=== PATIENT | female | born 1965 | race Two or more races ===

== ENCOUNTER → 2016-05-11 | Outpatient (CLI) | payer BC ==
[~2016-05-11] MED LIST: BUPR150T11 PO; ESOM20CA PO; ESTR0.9T PO; FERR-26 PO; GABA-586 PO; HYDR-2762 PO; LISI-334 PO
[2016-05-11 09:12] LABS: BASO # 0.1 x10^3/uL (0.0-0.2); BASO % 1 % (0-3); EOS % 1 % (0-3); HEMATOCRIT 40.5 % (36.0-47.0); HEMOGLOBIN 12.8 g/dL (12.0-15.5); LYMPH # 2.8 x10^3/uL (1.0-4.8); LYMPH % 26 % (24-48); MEAN CORPUSCULAR HEMOGLOBIN 28 pg (25-35); MEAN CORPUSCULAR HGB CONC 32 g/dL (31-37); MEAN CORPUSCULAR VOLUME 87 fL (79-100); MONO % 7 % (0-9); NEUT % 66 % (31-73); PLATELET COUNT 276 x10^3/uL (140-400); RED BLOOD COUNT 4.65 x10^6/uL (3.50-5.40); RED CELL DISTRIBUTION WIDTH 14.1 % (11.5-14.5); WHITE BLOOD COUNT 10.7 x10^3/uL (4.0-11.0)
[2016-05-11 09:29] LABS: ALBUMIN 3.3 g/dL (3.4-5.0); CALCIUM 9.1 mg/dL (8.5-10.1); CREATININE 0.7 mg/dL (0.6-1.0); GFR 89.3; POTASSIUM 3.9 mmol/L (3.5-5.1)
[2016-05-11 09:37] LABS: PROTHROMBIN TIME PATIENT 12.5 SEC (11.7-14.0)
[2016-05-11 11:18] LABS: BILIRUBIN,URINE NEGATIVE (NEG); GLUCOSE,URINE NEGATIVE (NEG); NITRITE,URINE NEGATIVE (NEG); PH,URINE 5.5; PROTEIN,URINE NEGATIVE (NEG-TRACE); UROBILINOGEN,URINE 0.2 mg/dL (0.2 mg/dL)
[2016-05-11 11:29] LABS: BACTERIA,URINE MANY /HPF (0-FEW); SQUAMOUS EPITHELIAL CELL,UR MANY /LPF
--- NOTE | 2016-05-11 12:25 | EKG ---
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
--- NOTE | 2016-05-11 13:31 | RAD ---
Chest, 2 views, 05/11/2016: History: Preop evaluation for knee surgery, hypertension The heart size and pulmonary vascularity are normal. No pulmonary infiltrates are seen. There is no evidence of pleural fluid. Mild spurring is present in the spine. IMPRESSION: No acute cardiopulmonary abnormality is detected.
== END | disposition home or self-care (01) ==
LOC: SURGPAT 12:59
PROVIDERS: ATTEND Orthopaedic Surgery
DX: M17.11 Unilateral primary osteoarthritis, right knee (principal); I10 Essential (primary) hypertension; Z98.890 Other specified postprocedural states; Z01.818 Encounter for other preprocedural examination
CPT/HCPCS: 36415; 71020; 80048; 81001; 82040; 85027; 85610; 85651; 85730; 87086; 87641; 93005

== ENCOUNTER → 2016-05-27 | Outpatient (CLI) | payer BC ==
[~2016-05-27] MED LIST changes: +ASPI325T4 PO; +CELE200C PO
[2016-05-27 15:19] LABS: BILIRUBIN,URINE SMALL (NEG); GLUCOSE,URINE NEGATIVE (NEG); NITRITE,URINE NEGATIVE (NEG); PROTEIN,URINE NEGATIVE (NEG-TRACE); UROBILINOGEN,URINE 0.2 mg/dL (0.2 mg/dL)
[2016-05-27 15:32] LABS: BACTERIA,URINE MODERATE /HPF (0-FEW); RBC,URINE RARE /HPF (0-2); SQUAMOUS EPITHELIAL CELL,UR MOD /LPF; WBC,URINE OCC /HPF (0-4)
== END | disposition home or self-care (01) ==
LOC: LAB 12:18
PROVIDERS: ATTEND Orthopaedic Surgery
DX: M17.11 Unilateral primary osteoarthritis, right knee (principal)
CPT/HCPCS: 81001; 87086

== ENCOUNTER 2016-06-02 06:12 | Inpatient (IN) | payer BC ==
[~2016-06-02] VITALS: Ht 158.8 cm; Wt 111.1 kg
[2016-06-02] VITALS (11 sets, daily range): BP systolic 111–143; BP diastolic 60–83
[2016-06-02] MEDS: IV DEXTROSE 5 %-0.45 % NACL 1,000 ML IV SCH ×2 (06:00→14:09)
[~2016-06-02 06:12] MED LIST changes: -ASPI325T4 PO; +CEFAZOLIN 2GM PREMIX 50 ML IV PRN; -CELE200C PO; +TRANEXAMIC ACID 1,000 MG in IV NORMAL SALINE 50ML 50 ML INJ ONE
[2016-06-02] MEDS ORDERED: TOBRAMYCIN POWDER 1.2 GM VIAL. ONE (06:41)
[2016-06-02] MEDS ORDERED: VANCOMYCIN 1 GM VIAL. ONE (06:41)
[2016-06-02] MEDS ORDERED: PROCHLORPERAZINE 10 MG/2 ML VIAL. IV PRN ×2 (07:00→12:45)
[2016-06-02] MEDS ORDERED: IV RINGERS,LACTATED 1000ML 1,000 ML IV SCH (07:00)
[2016-06-02] MEDS ORDERED: FENTANYL PF 100 MCG/2 ML VIAL. IV PRN ×3 (07:00→12:45)
[2016-06-02] MEDS ORDERED: ONDANSETRON PF 4 MG/2 ML VIAL. IV PRN (07:00)
[2016-06-02] MEDS ORDERED: LIDOCAINE 1% 1 ML SYRINGE. ID PRN (07:00)
[2016-06-02] MEDS ORDERED: HYDROCODONE/APAP 7.5/325MG TABLET. ONE (07:20)
[2016-06-02] MEDS ORDERED: HYDROCODONE/APAP 7.5/325MG TABLET. PO ONE (07:30)
[2016-06-02] MEDS ORDERED: CELE200C PO (07:40)
[2016-06-02] MEDS ORDERED: TRANEXAMIC ACID 1,000 MG in IV NORMAL SALINE 50ML 50 ML INJ ONE (08:00)
[2016-06-02] MEDS ORDERED: MORPHINE SULFATE 5 MG, KETOROLAC TROMETHAMINE 30 MG, ROPIVacaine 0.5% PF 60 ML, EPINEPH... INT ART ONE ×5 (08:00)
[2016-06-02] MEDS ORDERED: FENTANYL PF 100 MCG/2 ML VIAL. ONE ×3 (09:47→12:30)
[2016-06-02] MEDS ORDERED: MIDAZOLAM HCL 2 MG/2 ML VIAL. ONE (09:47)
[2016-06-02] MEDS ORDERED: ROCURONIUM 50 MG/5 ML VIAL. ONE (09:48)
[2016-06-02] MEDS ORDERED: FAMOTIDINE 20 MG/2 ML VIAL ONE (09:49)
[2016-06-02] MEDS ORDERED: LIDOCAINE 2% 100 MG/5 ML DISP.SYRIN. ONE (09:49)
[2016-06-02] MEDS ORDERED: PROPOFOL 20 ML IV ONE (09:49)
[2016-06-02] MEDS ORDERED: DEXAMETHASONE SOD PHOS 20 MG/5 ML VIAL. ONE (09:49)
[2016-06-02] MEDS ORDERED: ONDANSETRON PF 4 MG/2 ML VIAL. ONE (09:49)
[2016-06-02] MEDS ORDERED: SEVOFLURANE 61 TO 120 MINUTES. IH ONE (12:02)
[2016-06-02] MEDS ORDERED: DESFLURANE 61 TO 120 MINUTES IH ONE (12:02)
[2016-06-02] MEDS ORDERED: NEOSTIGMINE METHYLSULFATE 5 MG/5 ML SYRINGE. ONE (12:03)
[2016-06-02] MEDS ORDERED: GLYCOPYRROLATE 1 MG/5 ML VIAL. ONE (12:03)
--- NOTE | 2016-06-02 12:24 | PDOC4 ---
Operative Note Operative Note Date of Procedure: June 02, 2016 Pre-Op Diagnosis: Osteoarthritis right knee Post-Op Diagnosis: Osteoarthritis right knee Procedure: right total knee arthroplasty Surgeon: Shai oMreno MD B[employer] Molding Machine Operator: Elizabeth Diallo PA-C Anesthesia: General EBL: 100 mL Specimens Obtained: right knee bone and soft tissue Complications: none Implant Company: [employer] Drains: Hemovac plus pain catheter Tourniquet time: 57 minutes Indications for Procedure: Arthritis pain unrelieved by nonoperative management. Findings: Severe osteoarthritis with bone on bone contact medially and at the patellofemoral joint Implants used: Size 3 right bicruciate stabilized Journey II BCS Oxinium femoral component, size 2 right Journey nonporous tibial baseplate, size 1-2 18 mm right Journey II BCS XLPE articular insert, 29 mm oval Floridalma II resurfacing patellar component Procedure in Detail: The patient was identified in the preoperative holding area, and the correct right extremity was marked by me. The patient was taken to the operating room where the patient was anesthetized by the Department of Anesthesia. Preoperative antibiotics were given intravenously. Tranexamic acid 1 g was given intravenously for intraoperative hemostasis. A "time-out" procedure was performed. The patient was positioned supine on the operative table with a tourniquet on the upper thigh. The limb was thoroughly prepped and draped in sterile fashion. An impervious stockinet and adhesive drape were used such that the skin was entirely covered. An Gaitan leg puri was used. The operating team wore personal exhaust-ventilated hoods. The tourniquet was inflated to 350 mm Hg. A midline skin incision was made with a scalpel using the patella and tibial tubercle as landmarks. Electrocautery was used for hemostasis. My assistant tennis coach used rake retractors. A medial parapatellar arthrotomy incision was used with extension into the distal quadriceps tendon. The patella was retracted laterally and Hohmann retractors were now used by my assistant tennis coach. Excess synovium, the menisci, and the cruciate ligaments were resected sharply. The patella was assessed and excess synovium and osteophytes around the patellar articulation were removed. There was extensive inferior patellar osteophyte formation, and patella baja. Even after resection of the osteophyte, the patellar baja caused the patella to contact the tibia at 90 degrees of flexion. The patella was measured with a caliper, cut freehand with a saw using caliper measurements, sized, and then drilled for an oval three-pegged patella component. Periarticular injection was used in the suprapatellar pouch and distal quadriceps muscle. Whitesides's line was assessed on the femur. An intra-medullary 5 degree cutting guide was pinned to the femur, and a distal femoral cut was made with an oscillating saw. An additional 4 mm resection was used due to the deep femoral sulcus, and deficient femoral condyle.My assistant tennis coach held Hohmann retractors and an [facility] retractor to protect the medial and lateral collateral ligaments, the patellar tendon, the skin and the other soft tissues. An anterior referencing guide was applied with external rotation of 3 to match Whitesides line. A 5-in-1 Journey II cutting guide was then applied and pinned to the femur. The posterior, anterior, and all chamfer cuts were made with the oscillating saw. An extramedullary guide was pinned to the tibia and rotational alignment and the planned resection thickness assessed. An external alignment abilio was used to verify the planned cut in the varus-valgus plane and regarding posterior slope referencing the tibial tubercle, the tibial shaft, the ankle joint, and the second metatarsal. The upper tibia was cut made with an oscillating saw. My assistant tennis coach held Hohmann retractors and a posterior cruciate ligament retractor to protect the medial and lateral collateral ligaments, the patellar tendon, the skin, the peroneal nerve and the other soft tissues. The upper tibia was sized with a trial baseplate. The posterior compartment was cleared of osteophytes and loose bodies, and posterior capsule released. Monica-articular injection was used in the posterior compartment. The box cut for a posterior stabilized component was made. A preliminary reduction was performed with a trial femur, trial tibial baseplate and trial polyethylene. Soft-tissue balancing was now performed, and extension and rotation of the alignments was checked using a guide abilio in the tibial trial and a guide pin in the femur. No additional releases were required. The stability was assessed using different thicknesses of tibial articular surface to find satisfactory stability and good range of motion. The rotation of the tibial component was marked on the upper tibia. Final trial reduction was now performed verifying patella tracking and tibiofemoral stability and alignment. The tibia preparation was completed with a drill, saw, and fin punch at the previously noted rotation. The final implants were verified and opened. Outer gloves were changed by the operating team. The bone cuts were washed thoroughly with the Pollo InterPulse device and dried. Two packages of Palacos bone cement were mixed in powdered form with 1 gm of Vancomycin and 1.2 g tobramycin, then vacuum-mixed with the monomer, and placed into a cement gun. The cut surfaces of the bone were thoroughly dried with Linton-tip suction and with laparotomy sponges for cement interdigitation. The final components were cemented into place. The knee was kept at full extension while the cement hardened, and excess cement was removed. Tranexamic acid 1 g was redosed intravenously for additional intraoperative hemostasis. A final periarticular injection was used for pain relief. The tourniquet was released, and electrocautery was used for hemostasis. A final check of [id number] and stability was made, and the polyethylene implant final size was chosen. The polyethylene implant was secured to the tibial baseplate, and the knee was reduced a final time. Thorough irrigation was used. Hemovac and pain catheter were used.The arthrotomy was closed with interrupted [id number] #1 PDS suture. The capsulotomy was then run with #1 STRATAFIX symmetric PDS plus. The subcutaneous tissues were closed with #2-0 Vicryl by my assistant tennis coach. The skin was reapproximated with yrn by my assistant tennis coach. A bulky sterile dressing was applied. Needle and sponge counts were correct. SHAI MORENO MD Jun 02, 2016 12:24
[2016-06-02] MEDS: MORPHINE SULFATE 2 MG/ML DISP.SYRIN. IV PRN ×2 (12:40→12:50)
[2016-06-02] MEDS ORDERED: TRAMADOL 50 MG TABLET. PO PRN (12:45)
[2016-06-02] MEDS ORDERED: OXYCODONE/APAP 5/325 TABLET. PO PRN (12:45)
[2016-06-02] MEDS ORDERED: MORPHINE SULFATE 2 MG/ML DISP.SYRIN. IV PRN (12:45)
[2016-06-02] MEDS ORDERED: DEXTROSE 50% 25 GM / 50ML DISP.SYRIN. IV PRN (12:45)
[2016-06-02] MEDS ORDERED: ACETAMINOPHEN 325 MG TABLET. PO PRN (12:45)
[2016-06-02] MEDS ORDERED: DIPHENHYDRAMINE 50 MG/ML VIAL IV PRN (12:45)
[2016-06-02] MEDS ORDERED: ZOLPIDEM 5 MG TABLET. PO PRN (12:45)
[2016-06-02] MEDS ORDERED: 0.9 % SODIUM CHLORIDE 10 ML DISP.SYRIN. IV PRN (12:45)
[2016-06-02] MEDS ORDERED: MORPHINE SULFATE 10 MG/ML VIAL. IV PRN (12:45)
[2016-06-02] MEDS ORDERED: METOCLOPRAMIDE HCL 10 MG/2 ML VIAL. IV PRN (12:45)
[2016-06-02] MEDS ORDERED: HYDROCODONE/APAP 7.5/325MG TABLET. PO PRN (12:45)
[2016-06-02] MEDS ORDERED: CALCIUM CARBONATE 500 MG TAB.CHEW PO PRN (12:45)
[2016-06-02] MEDS ORDERED: PROCHLORPERAZINE 5 MG TABLET. PO PRN (12:45)
[2016-06-02] MEDS: HYDROMORPHONE 2 MG/ML VIAL. IV PRN ×2 (12:55→13:08)
--- NOTE | 2016-06-02 13:05 | RAD ---
EXAM: Right knee, 2 views HISTORY: Right knee arthroplasty. COMPARISON: None. FINDINGS: There are changes of tricompartmental arthroplasty in near-anatomic alignment. No fractures are identified. Soft tissue gas, skin yrn and a drain are noted. IMPRESSION: 1. Right total knee arthroplasty in expected alignment.
[2016-06-02] MEDS: FENTANYL PF 100 MCG/2 ML VIAL. IV PRN ×2 (13:21→13:41)
[2016-06-02] MEDS: SENNOSIDES/DOCUSATE 8.6/50MG TABLET. PO SCH (14:00)
[2016-06-02] MEDS: MORPHINE SULFATE 4 MG/ML DISP.SYRIN. IV PRN ×4 (15:14→21:46)
[2016-06-02] MEDS: CEFAZOLIN 2GM PREMIX 50 ML IV SCH ×2 (16:19→22:26)
[2016-06-02] MEDS: KETOROLAC TROMETHAMINE 30 MG, BUPIVACAINE MPF 0.25% 20 ML, EPINEPHRINE 0.5 MG in TOTAL ... INT ART SCH (16:56)
[2016-06-02] MEDS: HYDROCODONE/APAP 10/325 TABLET. PO PRN (20:38)
[2016-06-02] MEDS: GABAPENTIN 300 MG CAPSULE. PO SCH (20:38)
[2016-06-02] MEDS: CELECOXIB 200 MG CAPSULE PO SCH (20:38)
[2016-06-02] MEDS: ASPIRIN ENTERIC COATED 325 MG TABLET.DR. PO SCH (20:38)
[2016-06-02] MEDS: buPROPion SR 150 MG TABLET.SA PO SCH (20:39)
[2016-06-02] MEDS: LISINOPRIL 20 MG TABLET PO SCH (21:00)
[2016-06-03] MEDS: MORPHINE SULFATE 4 MG/ML DISP.SYRIN. IV PRN ×3 (02:36→23:37)
[2016-06-03 03:01] VITALS: BP 127/83
[2016-06-03] MEDS: CEFAZOLIN 2GM PREMIX 50 ML IV SCH (04:00)
[2016-06-03 05:00] LABS: HEMATOCRIT 31.9 % (36.0-47.0); HEMOGLOBIN 10.3 g/dL (12.0-15.5)
[2016-06-03] MEDS ORDERED: MAGNESIUM HYDROXIDE 2,400 MG/30 ML ORAL.SUSP. PO PRN (06:00)
[2016-06-03 06:06] VITALS: BP 104/56
[2016-06-03] MEDS: KETOROLAC TROMETHAMINE 30 MG, BUPIVACAINE MPF 0.25% 20 ML, EPINEPHRINE 0.5 MG in TOTAL ... INT ART SCH (06:19)
[2016-06-03] MEDS: OXYCODONE/APAP 7.5/325 TABLET. PO PRN ×3 (06:47→17:25)
[2016-06-03] MEDS: FERROUS SULFATE 325 MG TABLET PO SCH ×3 (08:27→17:25)
[2016-06-03] MEDS: MULTIVITAMIN with MINERAL TABLET. PO SCH (08:27)
[2016-06-03] MEDS: CELECOXIB 200 MG CAPSULE PO SCH ×2 (08:28→20:51)
[2016-06-03] MEDS: ASPIRIN ENTERIC COATED 325 MG TABLET.DR. PO SCH ×2 (08:28→20:51)
[2016-06-03] MEDS: SENNOSIDES/DOCUSATE 8.6/50MG TABLET. PO SCH (08:28)
[2016-06-03] MEDS: IV DEXTROSE 5 %-0.45 % NACL 1,000 ML IV SCH ×3 (08:36→20:16)
--- NOTE | 2016-06-03 09:28 | PDOC ---
PROGRESS NOTES Subjective Subjective Pain in the back of her knee. She states her pain is not controlled at this time and rates it at a 7/10 Objective Vital Signs Vital Signs Date Time Temp Pulse Resp B/P Pulse Ox O2 Delivery O2 Flow Rate FiO2 06/03/16 08:29 Room Air 06/03/16 08:03 2.5 06/03/16 06:47 20 06/03/16 06:06 97.8 96 104/56 94 97.8 Physical Exam Dressing dry. Pain catheter and Hemovac in place. Good dorsiflexion and plantarflexion of the foot with no evidence of neurovascular injury or DVT. Calves are soft and nontender with a negative Homans sign. Peripheral pulses and light touch sensation intact. Labs Laboratory Tests Test 06/03/16 04:45 Hemoglobin 10.3g/dL (12.0-15.5) Hematocrit 31.9% (36.0-47.0) Mean Corpuscular Hemoglobin Concent 32g/dL (31-37) Laboratory Tests Test 06/03/16 04:45 Hemoglobin 10.3g/dL (12.0-15.5) Hematocrit 31.9% (36.0-47.0) Mean Corpuscular Hemoglobin Concent 32g/dL (31-37) Imaging Postoperative x-rays reviewed by me, showing satisfactory total knee replacement , with no apparent complications. Assessment Assessment POD #1 right TKA Problems: Plan Plan of Care Continue POC including DVT prophylaxis and physical therapy. We will switch to Percocet 10/325 1-2 tabs every 4 hours prn pain. Her IV has been removed, but if the Percocet does not control her pain, we can restart IV pain medication. SHAMIKA FRANCISCO Jun 03, 2016 09:28
[2016-06-03] MEDS: OXYCODONE/APAP 10/325 TABLET. PO PRN ×3 (09:35→18:17)
[2016-06-03] MEDS: OXYCODONE ER 15 MG TAB.ER.12H. PO SCH ×2 (11:01→20:52)
[2016-06-03] MEDS: HYDROCODONE/APAP 10/325 TABLET. PO PRN (11:02)
[2016-06-03 11:06] VITALS: BP 113/77
--- NOTE | 2016-06-03 11:39 | PDOC1 ---
History and Physical Date of Admission Date of Admission DATE: 06/02/16 Identification/Chief Complaint Chief Complaint right knee osteoarthritis pain Source Source: Chart review History of Present Illness History of Present Illness Toya underwent injections of 80mg depomedrol to both knees and 40mg depomedrol to both ankles on 01/09/2016. She presents using a walker because she is having difficulty ambulating around her home. She states the shot did nothing for her right knee but her left knee and both ankles are actually feeling better. She is experiencing locking and swelling in her right knee that is happening frequently. She has stiffness in the mornings and pain constantly now throughout the day. The pain is waking her up from sleep. She is wanting to discuss surgery and is requesting to be off work until her surgery since she is in so much pain and is unable to perform her job duties. She denies any medication changes since her last office visit. Past Medical History Cardiovascular: HTN Psych: Depression Past Surgical History Past Surgical History: Hysterectomy, Other (right knee scope with MM, LM, loose body removal 06/15/11) Family History Family History: Diabetes Social History Smoke: No ALCOHOL: none Drugs: None Current Problem List Problem List Problems Medical Problems: (1) Osteoarthritis of right knee Status: Acute Problems: Current Medications Current Medications Current Medications Morphine Sulfate/ Ketorolac Tromethamine/ Ropivacaine/ Epinephrine HCl/ Sodium Chloride (Morphine 5mg Syringe/Toradol/ Naropin 0.5%/ Adrenalin/Iv Sodium Chloride 0.9% 100ml) 100.5 ml @ 100.5 mls/ hr 1X PERIOP ONCE INT ART Last administered on 06/02/16t 10:49; Start 06/02/16 at 08:00; Stop 06/02/16 at 09:04 ; Status DC Ondansetron HCl (Zofran) 4 mg PRN Q6HRS PRN IV Nausea; Start 06/02/16 at 07:00 ; Stop 06/03/16 at 06:59; Status DC Fentanyl Citrate (Fentanyl 2ml Vial) 25 mcg PRN Q5MIN PRN IV MILD PAIN; Start 06/02/16 at 07:00; Stop 06/03/16 at 06:59; Status DC Fentanyl Citrate (Fentanyl 2ml Vial) 50 mcg PRN Q5MIN PRN IV MODERATE PAIN Last administered on 06/02/16t 13:41; Start 06/02/16 at 07:00; Stop 06/03/16 at 06:59; Status DC Morphine Sulfate 1 mg 1 mg PRN Q10MIN PRN IV SEVERE PAIN Last administered on 12:50; Start 06/02/16 at 07:00; Stop 06/03/16 at 06:59; Status DC Lactated Ringer's (Iv Lactated Ringers) 1,000 ml @ 0 mls/hr Q0M IV Last administered on 06/02/16 07:35; Start 06/02/16 at 07:00; Stop 06/02/16 at 18:59 ; Status DC Lidocaine HCl 2 ml 1X PRN PRN ID IV START; Start 06/02/16 at 07:00; Stop at 06:59; Status DC Hydromorphone HCl (Dilaudid) 0.5 mg PRN Q10MIN PRN IV SEVERE PAIN, Second choice Last administered on 06/02/16 13:08; Start 06/02/16 at 07:00; Stop 06/03 at 06:59; Status DC Prochlorperazine Edisylate 5 mg 5 mg PACU PRN PRN IV NAUSEA Last administered on 06/02/16 13:02; Start 06/02/16 at 07:00; Stop 06/03/16 at 06:59; Status DC Cefazolin Sodium/ Dextrose 50 ml @ 100 mls/hr 1X PREOP PRN IV PRIOR TO PROCEDURE Last administered on 06/02/16 10:19; Start 06/02/16 at 06:00; Stop at 18:00; Status DC Tranexamic Acid 1000 mg/Sodium Chloride 60 ml @ 60 mls/hr 1X PERIOP ONCE INJ Last administered on 06/02/16 10:30; Start 06/02/16 at 06:00; Stop 06/02/16 at 06:59; Status DC Tranexamic Acid/ Sodium Chloride (Cyklokapron/Iv Sodium Chloride 0.9% 50ml) 60 ml @ 60 mls/hr 1X PERIOP ONCE INJ ; Start 06/02/16 at 08:00; Stop 06/02/16 at 09:04; Status DC Acetaminophen/ Hydrocodone Bitart (Lortab 7.5/325) 2 tab 1X ONCE PO Last administered on 06/02/16 07:30; Start 06/02/16 at 07:30; Stop 06/02/16 at 07:31 ; Status DC Vancomycin HCl 1 gm STK-MED ONCE .ROUTE Last administered on 06/02/16 10:49; Start 06/02/16 at 06:41; Stop 06/02/16 at 10:07; Status DC Tobramycin Sulfate 1.2 gm STK-MED ONCE .ROUTE Last administered on 06/02/16 10 :49; Start 06/02/16 at 06:41; Stop 06/02/16 at 10:07; Status DC Acetaminophen/ Hydrocodone Bitart (Lortab 7.5/325) 1 tab STK-MED ONCE .ROUTE ; Start 06/02/16 at 07:20; Stop 06/02/16 at 10:08; Status DC Fentanyl Citrate (Fentanyl 2ml Vial) 100 mcg STK-MED ONCE .ROUTE ; Start at 09:47; Stop 06/02/16 at 10:16; Status DC Midazolam HCl (Versed) 2 mg STK-MED ONCE .ROUTE ; Start 06/02/16 at 09:47; Stop 06/02/16 at 10:16; Status DC Rocuronium Norris (Zemuron) 50 mg STK-MED ONCE .ROUTE ; Start 06/02/16 at 09:48 ; Stop 06/02/16 at 10:16; Status DC Lidocaine HCl 100 mg STK-MED ONCE .ROUTE ; Start 06/02/16 at 09:49; Stop at 10:16; Status DC Dexamethasone Sodium Phosphate 20 mg 20 mg STK-MED ONCE .ROUTE ; Start 06/02/16 at 09:49; Stop 06/02/16 at 10:16; Status DC Propofol (Diprivan) 20 ml @ As Directed STK-MED ONCE IV ; Start 06/02/16 at 09: 49; Stop 06/02/16 at 10:17; Status DC Ondansetron HCl (Zofran) 4 mg STK-MED ONCE .ROUTE ; Start 06/02/16 at 09:49; Stop 06/02/16 at 10:17; Status DC Famotidine (Pepcid) 20 mg STK-MED ONCE .ROUTE ; Start 06/02/16 at 09:49; Stop at 10:17; Status DC Fentanyl Citrate (Fentanyl 2ml Vial) 100 mcg STK-MED ONCE .ROUTE ; Start at 10:44; Stop 06/02/16 at 10:45; Status DC Sevoflurane (Ultane) 60 ml STK-MED ONCE IH ; Start 06/02/16 at 12:02; Stop 06/02 at 12:03; Status DC Desflurane (Suprane) 60 ml STK-MED ONCE IH ; Start 06/02/16 at 12:02; Stop 06/02 at 12:03; Status DC Glycopyrrolate (Robinul) 1 mg STK-MED ONCE .ROUTE ; Start 06/02/16 at 12:03; Stop 06/02/16 at 12:04; Status DC Neostigmine Methylsulfate 5 mg STK-MED ONCE .ROUTE ; Start 06/02/16 at 12:03; Stop 06/02/16 at 12:04; Status DC Fentanyl Citrate (Fentanyl 2ml Vial) 100 mcg STK-MED ONCE .ROUTE ; Start at 12:30; Stop 06/02/16 at 12:31; Status DC Acetaminophen/ Hydrocodone Bitart (Lortab 7.5/325) 1 tab PRN Q3HRS PRN PO PAIN ; Start 06/02/16 at 12:45 Acetaminophen/ Hydrocodone Bitart (Lortab 10/325) 1 tab PRN Q3HRS PRN PO PAIN Last administered on 06/03/16 11:02; Start 06/02/16 at 12:45 Tramadol HCl (Ultram) 50 mg PRN QID PRN PO PAIN Last administered on 06/03/16 08:29; Start 06/02/16 at 12:45 Oxycodone/ Acetaminophen (Percocet 5/325) 1 tab PRN Q3HRS PRN PO PAIN Last administered on 06/03/16 08:28; Start 06/02/16 at 12:45 Oxycodone/ Acetaminophen (Percocet 7.5/ 325) 1 tab PRN Q3HRS PRN PO PAIN Last administered on 06/03/16 06:47; Start 06/02/16 at 12:45 Tramadol HCl (Ultram) 100 mg PRN Q3HRS PRN PO PAIN; Start 06/02/16 at 12:45 Morphine Sulfate 2 mg PRN Q1HR PRN IV PAIN; Start 06/02/16 at 12:45 Fentanyl Citrate (Fentanyl 2ml Vial) 25 mcg PRN Q1HR PRN IV PAIN; Start at 12:45 Diphenhydramine HCl (Benadryl) 25 mg PRN Q6HRS PRN IV ITCHING; Start 06/02/16 at 12:45 Multivitamins/ Calcium (Thera M Plus) 1 tab DAILY PO Last administered on 08:27; Start 06/03/16 at 09:00 Senna/Docusate Sodium (Senna Plus) 1 tab DAILY PO Last administered on 08:28; Start 06/02/16 at 14:00 Ferrous Sulfate (Feosol) 325 mg BIDWMEALS PO Last administered on 06/03/16 08: 29; Start 06/02/16 at 17:00 Celecoxib 200 mg 200 mg BID PO Last administered on 06/03/16 08:28; Start at 21:00 Dextrose/Sodium Chloride (Iv D5% - 1/2 NS) 1,000 ml @ 100 mls/hr Q10H IV Last administered on 06/02/16 14:09; Start 06/02/16 at 12:36 Prochlorperazine Maleate (Compazine) 10 mg PRN Q4HRS PRN PO NAUSEA/VOMITING; Start 06/02/16 at 12:45 Metoclopramide HCl (Reglan) 10 mg PRN Q4HRS PRN IV NAUSEA/VOMITING; Start 06/02 at 12:45 Magnesium Hydroxide (Milk Of Magnesia) 2,400 mg 1X PRN PRN PO CONSTIPATION; Start 06/03/16 at 06:00; Stop 06/04/16 at 05:59 Bisacodyl (Dulcolax Supp) 10 mg 1X PRN PRN [place] CONSTIPATION; Start 06/03/16 at 16:00; Stop 06/04/16 at 15:59 Acetaminophen (Tylenol) 650 mg PRN Q4HRS PRN PO MILD PAIN / TEMP; Start at 12:45 Zolpidem Tartrate (Ambien) 5 mg PRN QHS PRN PO INSOMNIA, MAY REPEAT IN 1HR; Start 06/02/16 at 12:45 Calcium Carbonate/ Glycine (Tums) 500 mg PRN QID PRN PO INDIGESTION; Start at 12:45 Morphine Sulfate 4 mg PRN Q1HR PRN IV PAIN Last administered on 06/02/16 19:20 ; Start 06/02/16 at 12:45 Morphine Sulfate 6 mg PRN Q1HR PRN IV PAIN; Start 06/02/16 at 12:45 Morphine Sulfate 8 mg 8 mg PRN Q1HR PRN IV PAIN Last administered on 06/03/16 02:36; Start 06/02/16 at 12:45 Ketorolac Tromethamine/ Bupivacaine HCl/ Epinephrine HCl/ Miscellaneous (Toradol / Sensorcaine Mpf 0.25%/Adrenalin) 43.0 ml @ 258 mls/hr Q12H INT ART Last administered on 06/03/16 06:19; Start 06/02/16 at 18:00; Stop 06/03/16 at 06:09 ; Status DC Sodium Chloride (Normal Saline Flush) 10 ml QSHIFT PRN IV AFTER MEDS AND BLOOD DRAWS; Start 06/02/16 at 12:45 Fentanyl Citrate (Fentanyl 2ml Vial) 50 mcg PRN Q1HR PRN IV PAIN Last administered on 06/02/16 14:11; Start 06/02/16 at 12:45 Prochlorperazine Edisylate (Compazine) 10 mg PRN Q4HRS PRN IV NAUSEA/VOMITING; Start 06/02/16 at 12:45 Dextrose 12.5 gm 12.5 gm PRN Q15MIN PRN IV SEE COMMENTS; Start 06/02/16 at 12: 45 Cefazolin Sodium/ Dextrose (Ancef 2gm Premix) 50 ml @ 100 mls/hr Q6H IV Last administered on 06/03/16 04:00; Start 06/02/16 at 16:00; Stop 06/03/16 at 04:29 ; Status DC Aspirin (Ecotrin) 325 mg BID PO Last administered on 06/03/16 08:28; Start at 21:00 Bupropion HCl (Wellbutrin Sr) 150 mg HS PO Last administered on 06/02/16 20:39 ; Start 06/02/16 at 21:00 Gabapentin (Neurontin) 300 mg HS PO Last administered on 06/02/16 20:38; Start 06/02/16 at 21:00 Lisinopril (Prinivil) 20 mg HS PO ; Start 06/02/16 at 21:00 Oxycodone/ Acetaminophen (Percocet 10/325) 1-2 tablets ever... PRN Q4HRS PRN PO PAIN Last administered on 06/03/16 09:35; Start 06/03/16 at 09:30 Oxycodone HCl (Oxycontin) 15 mg Q12HR PO Last administered on 06/03/16 11:01; Start 06/03/16 at 10:00 Active Scripts Active Reported Celebrex (Celecoxib) 200 Mg Capsule 200 Mg PO 1X 30 Days Hydrocodone-Apap 7.5-325 (Hydrocodone Bit/Acetaminophen) 1 Each Tablet 1 Tab PO PRN Q6HRS PRN Premarin (Estrogens, Conjugated) 0.9 Mg Tablet 0.9 Mg PO DAILY Gabapentin 300 Mg Capsule 300 Mg PO HS Lisinopril 20 Mg Tablet 20 Mg PO HS Bupropion Hcl Sr (Bupropion Hcl) 150 Mg Tablet.er 150 Mg PO HS Ferrous Sulfate 325 Mg Tablet 1 Tab PO DAILY Nexium Capsule (Esomeprazole Magnesium) 20 Mg Capsule.dr 1 Cap PO DAILY Allergies Allergies: Coded Allergies: No Known Drug Allergies (Unverified , 06/02/16) Physical Exam General: Alert, Oriented X3, Cooperative, No acute distress HEENT: Atraumatic Lungs: Normal air movement Heart: RRR Abdomen: Soft Extremities: No clubbing, No cyanosis, Normal pulses, Other (The right knee shows her mildly antalgic gait. There is varus alignment. No masses. No detectable effusion. Tenderness on the joint lines. Range of motion is 5-115 degrees. There is crepitus with range of motion, and pain at the extremes of motion. The knee is stable to varus and valgus stress without subluxation or laxity. Muscle strength is normal (5/5) for quadriceps and hamstrings, and muscle tone is normal. The skin is normal with no scars, rashes, lesions or ulcers. Light touch sensation is intact. No edema and no varicosities. Dorsalis pedis pulse is intact and capillary refill is normal. The left knee shows trace varus alignment. No masses. No detectable effusion. Tenderness on the joint lines. Range of motion is 5-115 degrees. There is crepitus with range of motion , and pain at the extremes of motion. The knee is stable to varus and valgus stress without subluxation or laxity. Muscle strength is normal (5/5) for quadriceps and hamstrings, and muscle tone is normal. The skin is normal with no scars, rashes, lesions or ulcers. Light touch sensation is intact. No edema and no varicosities. Dorsalis pedis pulse is intact and capillary refill is normal. ) Skin: No breakdown, No significant lesion Neuro: Normal speech, Normal tone, Sensation intact Psych/Mental Status: Mental status NL, Mood NL Vitals Vitals Vital Signs Date Time Temp Pulse Resp B/P Pulse Ox O2 Delivery O2 Flow Rate FiO2 06/03/16 11:06 98.1 90 20 113/77 96 Room Air 98.1 06/03/16 08:03 2.5 Labs Labs Laboratory Tests Test 06/03/16 04:45 Hemoglobin 10.3g/dL (12.0-15.5) Hematocrit 31.9% (36.0-47.0) Mean Corpuscular Hemoglobin Concent 32g/dL (31-37) Laboratory Tests Test 06/03/16 04:45 Hemoglobin 10.3g/dL (12.0-15.5) Hematocrit 31.9% (36.0-47.0) Mean Corpuscular Hemoglobin Concent 32g/dL (31-37) VTE Prophylaxis Ordered VTE Prophylaxis Devices: Yes VTE Pharmacological Prophylaxi: Yes Assessment/Plan Assessment/Plan Dr. Moreno and the patient had along discussion today about the risks benefits and alternatives of total knee arthroplasty. Toya has had multiple cortisone injections, and other nonoperative treatment for her knee arthritis pain. She has [id number] arthritis radiographically and has difficulty with activities of daily living. She is now using a walker. She has difficulty ambulating even in her home. Her daughter Naomi translated, and outside translation was deferred by the patient. She was here with her , daughter Naomi and grandson. Due to her young age, revision surgery might be necessary during her lifetime. She has severe arthritis for her age I do believe she would benefit from knee arthroplasty sooner rather than later. We discussed the potential risks of infection, neurovascular injury, bleeding, blood clots, need for revision surgery, or other potential surgical or anesthetic complications. We discussed the expected hospitalization and recovery. Dr. Moreno demonstrated the surgery using sawbones models. Dr. Moreno discussed the potential for late infection of the knee arthroplasty, such as I have seen in patients with poor dentition and dental abscesses. The patient and her family mentioned that Toya does have a dental abscess that has been resistant to multiple previous treatments and is requiring some upcoming procedures to attempt to eradicate the problem. I believe she already had a root canal, but the abcess recurred. This would be a high risk to cause hematologic seeding of the prosthetic knee joint Dr. Moreno recommended that we defer on knee replacement surgery until that dental infection has been completely cleared. They stated understanding and will see the dentist soon SHAMIKA FRANCISCO Jun 03, 2016 11:38
[2016-06-03] MEDS ORDERED: BISACODYL 10 MG SUPP.RECT PR PRN (16:00)
[2016-06-03 17:29] VITALS: BP 136/71
[2016-06-03] MEDS: buPROPion SR 150 MG TABLET.SA PO SCH (20:51)
[2016-06-03] MEDS: GABAPENTIN 300 MG CAPSULE. PO SCH (20:51)
[2016-06-03] MEDS: LISINOPRIL 20 MG TABLET PO SCH (20:51)
[2016-06-03 21:33] VITALS: BP 136/71
[2016-06-04 05:30] VITALS: BP 108/62
[2016-06-04] MEDS: MORPHINE SULFATE 4 MG/ML DISP.SYRIN. IV PRN (06:03)
[2016-06-04 06:35] LABS: HEMATOCRIT 29.9 % (36.0-47.0); HEMOGLOBIN 9.8 g/dL (12.0-15.5)
[2016-06-04] MEDS: FERROUS SULFATE 325 MG TABLET PO SCH ×2 (08:27→17:28)
[2016-06-04] MEDS: OXYCODONE/APAP 7.5/325 TABLET. PO PRN (08:28)
[2016-06-04] MEDS: MULTIVITAMIN with MINERAL TABLET. PO SCH (08:28)
[2016-06-04] MEDS: OXYCODONE ER 15 MG TAB.ER.12H. PO SCH ×2 (08:28→20:28)
[2016-06-04] MEDS: CELECOXIB 200 MG CAPSULE PO SCH ×2 (08:28→20:27)
[2016-06-04] MEDS: ASPIRIN ENTERIC COATED 325 MG TABLET.DR. PO SCH ×2 (08:28→20:28)
[2016-06-04] MEDS: SENNOSIDES/DOCUSATE 8.6/50MG TABLET. PO SCH (08:28)
[2016-06-04] MEDS: HYDROCODONE/APAP 10/325 TABLET. PO PRN ×2 (10:45→14:42)
[2016-06-04] MEDS: IV DEXTROSE 5 %-0.45 % NACL 1,000 ML IV SCH (12:24)
--- NOTE | 2016-06-04 12:53 | PDOC ---
PROGRESS NOTES Subjective Subjective still quite a bit of pain, but doing better. She's been on narcotics preoperatively, so this is somewhat expected in an opioid tolerant patient, and a very arthritic knee with aggressive exposure needed. Objective Vital Signs Vital Signs Date Time Temp Pulse Resp B/P Pulse Ox O2 Delivery O2 Flow Rate FiO2 06/04/16 12:37 Room Air 06/04/16 06:33 20 06/04/16 05:30 98.7 89 108/62 95 98.7 06/03/16 08:03 2.5 Physical Exam Knee dressing dry. NVI at toes with good AROM. Able to lift leg from bed. Labs Laboratory Tests Test 06/03/16 04:45 06/04/16 05:45 Hemoglobin 10.3g/dL (12.0-15.5) 9.8g/dL (12.0-15.5) Hematocrit 31.9% (36.0-47.0) 29.9% (36.0-47.0) Mean Corpuscular Hemoglobin Concent 32g/dL (31-37) 33g/dL (31-37) Laboratory Tests Test 06/04/16 05:45 Hemoglobin 9.8g/dL (12.0-15.5) Hematocrit 29.9% (36.0-47.0) Mean Corpuscular Hemoglobin Concent 33g/dL (31-37) Imaging postop x-ray reviewed by me and show satisfactory alignment and no apparent complications. Assessment Assessment POD#2 TKA Problems: Plan Plan of Care I recommend scheduled oxycontin and then prn narcotic pain medication. Continue NSAIDs. Discharge planning. Continue PT and DVT prophylaxis. SHAI SAENZ MD Jun 04, 2016 12:53
[2016-06-04] MEDS: TRAMADOL 50 MG TABLET. PO PRN ×2 (12:54→20:28)
[2016-06-04 17:00] VITALS: BP 113/72
[2016-06-04] MEDS ORDERED: MAGNESIUM HYDROXIDE 2,400 MG/30 ML ORAL.SUSP. PO PRN (17:30)
[2016-06-04] MEDS: OXYCODONE/APAP 10/325 TABLET. PO PRN ×2 (18:06→21:35)
[2016-06-04 18:11] VITALS: BP 115/75
[2016-06-04] MEDS: GABAPENTIN 300 MG CAPSULE. PO SCH (20:27)
[2016-06-04] MEDS: buPROPion SR 150 MG TABLET.SA PO SCH (20:27)
[2016-06-04] MEDS: LISINOPRIL 20 MG TABLET PO SCH (20:29)
[2016-06-05] MEDS: OXYCODONE/APAP 10/325 TABLET. PO PRN ×3 (04:15→13:13)
[2016-06-05 05:30] VITALS: BP 103/63
[2016-06-05 07:11] LABS: HEMATOCRIT 29.6 % (36.0-47.0); HEMOGLOBIN 9.5 g/dL (12.0-15.5)
[2016-06-05] MEDS: TRAMADOL 50 MG TABLET. PO PRN ×2 (07:39→12:46)
[2016-06-05] MEDS: CELECOXIB 200 MG CAPSULE PO SCH (09:05)
[2016-06-05] MEDS: FERROUS SULFATE 325 MG TABLET PO SCH (09:05)
[2016-06-05] MEDS: SENNOSIDES/DOCUSATE 8.6/50MG TABLET. PO SCH (09:05)
[2016-06-05] MEDS: ASPIRIN ENTERIC COATED 325 MG TABLET.DR. PO SCH (09:06)
[2016-06-05] MEDS: MULTIVITAMIN with MINERAL TABLET. PO SCH (09:06)
[2016-06-05] MEDS: OXYCODONE ER 15 MG TAB.ER.12H. PO SCH (09:06)
[2016-06-05] MEDS ORDERED: MAG HYDROX/ALUMINUM HYDROX/SMC 30 ML ORAL.SUSP PO PRN (12:00)
--- NOTE | 2016-06-05 13:21 | PDOC ---
PROGRESS NOTES Subjective Subjective Doing better today. Planning for discharge later today after PT. Objective Vital Signs Vital Signs Date Time Temp Pulse Resp B/P Pulse Ox O2 Delivery O2 Flow Rate FiO2 06/05/16 13:14 14 Room Air 06/05/16 05:30 98.0 90 103/63 93 98.0 06/03/16 08:03 2.5 Physical Exam Expected swelling. Ecchymosis medially and posteriorly. Dressing with spotty drainage only. Calf soft and nontender. Negative Homans. Good AROM ankle. Peripheral pulses and light touch sensation intact. Labs Laboratory Tests Test 06/04/16 05:45 06/05/16 06:35 Hemoglobin 9.8g/dL (12.0-15.5) 9.5g/dL (12.0-15.5) Hematocrit 29.9% (36.0-47.0) 29.6% (36.0-47.0) Mean Corpuscular Hemoglobin Concent 33g/dL (31-37) 32g/dL (31-37) Laboratory Tests Test 06/05/16 06:35 Hemoglobin 9.5g/dL (12.0-15.5) Hematocrit 29.6% (36.0-47.0) Mean Corpuscular Hemoglobin Concent 32g/dL (31-37) Assessment Assessment POD #3 right TKA Problems: Plan Plan of Care Discharge later today, to home with outpatient PT at [facility]. Continue DVT prophylaxis and physical therapy. F/U 10-14 days. SHAMIKA FRANCISCO Jun 05, 2016 13:21
--- NOTE | 2016-06-05 13:24 | PDOC3 ---
Discharge Summary Visit Information Date of Admission: Jun 02, 2016 Date of Discharge: Jun 05, 2016 Admitting Diagnosis: right knee osteoarthritis pain Final Diagnosis Problems Medical Problems: (1) Osteoarthritis of right knee Status: Acute Brief Hospital Course Allergies Allergies Coded Allergies Type Severity Reaction Last Updated Verified No Known Drug Allergies 06/02/16 No Vital Signs Vital Signs Date Time Temp Pulse Resp B/P Pulse Ox O2 Delivery O2 Flow Rate FiO2 06/05/16 13:14 14 Room Air 06/05/16 05:30 98.0 90 103/63 93 98.0 Lab Results Laboratory Tests Test 06/04/16 05:45 06/05/16 06:35 Hemoglobin 9.8g/dL (12.0-15.5) 9.5g/dL (12.0-15.5) Hematocrit 29.9% (36.0-47.0) 29.6% (36.0-47.0) Mean Corpuscular Hemoglobin Concent 33g/dL (31-37) 32g/dL (31-37) Laboratory Tests Test 06/05/16 06:35 Hemoglobin 9.5g/dL (12.0-15.5) Hematocrit 29.6% (36.0-47.0) Mean Corpuscular Hemoglobin Concent 32g/dL (31-37) Brief Hospital Course 50 year old female who presented with knee osteoarthritis, for elective total knee arthroplasty. The patient underwent total knee arthroplasty under general anesthesia the day of admission. Perioperative antibiotics and DVT prophylaxis were used. Postoperatively physical therapy and case management were consulted. The patient progressed and is stable for discharge. Discharge Information Condition at Discharge: Stable Follow Up: Weeks (2) Disposition/Orders: D/C to Home Scheduled Bupropion Hcl (Bupropion Hcl Sr) 150 MG PO HS (Reported) Celecoxib (Celebrex) 200 MG PO 1X (Reported) Esomeprazole Magnesium (Nexium Capsule) 1 CAP PO DAILY (Reported) Estrogens, Conjugated (Premarin) 0.9 MG PO DAILY (Reported) Ferrous Sulfate (Ferrous Sulfate) 1 TAB PO DAILY (Reported) Gabapentin (Gabapentin) 300 MG PO HS (Reported) Lisinopril (Lisinopril) 20 MG PO HS (Reported) Scheduled PRN Hydrocodone Bit/Acetaminophen (Hydrocodone-Apap 7.5-325 ) 1 TAB PO PRN Q6HRS PRN PRN PAIN (Reported) Patient Instructions Patient Instructions Patient Instructions Continue to WBAT with walker. Keep dressing dry and intact. F/U with [facility] in 10-14 days. Call for appointment. Physical therapy for TKA Continue DVT prophylaxis. SHAMIKA FRANCISCO Jun 05, 2016 13:24
[2016-06-05] MEDS ORDERED: ASPI325T4 PO (14:03)
--- NOTE | 2016-06-05 15:38 | PATHOLOGY ---
PATHOLOGY REPORT * * * * * * * * FINAL DIAGNOSIS: Segments of bone and soft tissue, right total knee arthroplasty: - Advanced degenerative arthritis. (JPM:csd; d/t: 06/05/2016) REPORT ELECTRONICALLY SIGNED BY: Enoch Melgar M.D. DATE/TIME: 06/05/2016 15:38 * * * * * * * * GROSS PATHOLOGY: Received in formalin labeled "Juventino Oliva, right knee tissue," are multiple segments of bone, including tibial plateau, measuring 10.4 x 9.8 x 2.3 cm in aggregate dimensions admixed with soft tissue; meniscus is present. The specimen shows focal eburnation of the articular surfaces. [employer] sections of bone and soft tissue are submitted in cassette A1, following decalcification. (CAA; 06/04/2016) INITIAL CPT CODE(S): A; 22068, 19630 Professional services [place] [facility] [place] [address] Technical services performed by [facility] at [address] [place] [address]. SPECIMEN(S) RECEIVED: A.Right knee tissue CLINICAL HISTORY: Right knee OA, DJD PATIENT: JUVENTINO OLIVA /AGE: 3 1965 (Age: 50) PATIENT #: [id number] ALT CASE #: SPECIMEN COLLECTION DATE: 06/02/2016 SPECIMEN RECEIVED DATE: 06/03/2016 [facility] - [address] [place] [address] - PHONE: [phone] * * * END OF REPORT * * *
[2016-06-05 16:11] LABS: BILIRUBIN,URINE NEGATIVE (NEG); GLUCOSE,URINE NEGATIVE (NEG); NITRITE,URINE NEGATIVE (NEG); PROTEIN,URINE NEGATIVE (NEG-TRACE)
[2016-06-05 16:28] LABS: BACTERIA,URINE FEW /HPF (0-FEW); WBC,URINE OCC /HPF (0-4)
[2016-06-05 16:29] LABS: SQUAMOUS EPITHELIAL CELL,UR FEW /LPF
[2016-06-05 16:30] VITALS: BP 102/70
[2016-06-05 16:30] LABS: YEAST,URINE PRESENT /HPF
== END 2016-06-05 17:00 | disposition home or self-care (01) | DRG 470 ==
LOC: OPSVCIP 06:12 → 4 SOUTHEST 13:50
PROVIDERS: ADMIT Orthopaedic Surgery; ATTEND Orthopaedic Surgery
PROC: 0SRC0J9 Replacement of Right Knee Joint with Synthetic Substitute, Cemented, Open Approach (ICD-10-PCS; principal; 2016-06-02 10:00)
DX: M17.11 Unilateral primary osteoarthritis, right knee (principal); F32.9 Major depressive disorder, single episode, unspecified; I10 Essential (primary) hypertension; Z83.3 Family history of diabetes mellitus; Z90.710 Acquired absence of both cervix and uterus
CPT/HCPCS: 36415; 73560; 81001; 85014; 85018; 86701; 86850; 86900; 86901; 88305; 88311; J0171; J0690; J0780; J1100; J1170; J1885; J2250; J2270; J2405; J2704; J2710; J2795; J3010; J3260; J3370; J3490; J7030; J7120; S0028; 97116; 97150; 97530; 97535; C1769

== ENCOUNTER → 2016-10-01 | Outpatient (CLI) | payer BC ==
[~2016-10-01] MED LIST changes: +ASPI325T8 PO; -CEFAZOLIN 2GM PREMIX 50 ML IV PRN; +CELE200C PO; -TRANEXAMIC ACID 1,000 MG in IV NORMAL SALINE 50ML 50 ML INJ ONE
--- NOTE | 2016-10-01 12:43 | CARD ---
APPROVED REPORT EXAM: Two-dimensional and M-mode echocardiogram with Doppler and color Doppler. Other Information Quality : GoodHR: 64bpm INDICATION Palpitations HTN RISK FACTORS Hypertension Obesity 2D DIMENSIONS RVDd2.9 (2.9-3.5cm)Left Atrium(2D)3.6 (1.6-4.0cm) IVSd1.0 (0.7-1.1cm)Aortic Root(2D)2.6 (2.0-3.7cm) LVDd5.2 (3.9-5.9cm)LVOT Diameter2.2 (1.8-2.4cm) PWd1.0 (0.7-1.1cm)LVDs3.6 (2.5-4.0cm) FS (%) 30.4 %SV74.5 ml LVEF(%)57.5 (>50%) Aortic Valve AoV Peak Solomon.119.2cm/sAoV VTI25.3cm AO Peak GR.5.7mmHgLVOT Peak Solomon.111.5cm/s AO Mean GR.3mmHgAVA (VMAX)3.46cm2 Mitral Valve MV E Bghnccbe58.0cm/sMV E Peak Gr.4mmHg MV DECEL [id number] A Ovcxkwcl34.5cm/s MV E Mean Gr.2mmHgE/A Ratio1.6 MV A [id number] Pulmonary Valve PV Peak Kdrnffdf508.4cm/s Tricuspid Valve TR P. Yfathnqo921fg/sTR Peak Gr.21mmHg Pulmonary Vein S1 Xjfcgekq71.6cm/sD2 Wylydwlm02.5cm/s PVa [id number] LEFT VENTRICLE The left ventricle is normal size. There is normal left ventricular wall thickness. The left ventricu lar systolic function is normal. The Ejection Fraction is 55-60%. There is normal LV segmental wall m otion. The left ventricular diastolic function and filling is normal for age. RIGHT VENTRICLE The right ventricle is normal size. There is normal right ventricular wall thickness. The right ventr icular systolic function is normal. ATRIA The left atrium is mildly dilated. The right atrium size is normal. The interatrial septum is intact with no evidence for an atrial septal defect or patent foramen ovale as noted on 2-D or Doppler imagi ng. AORTIC VALVE The aortic valve is normal in structure and function. Doppler and Color Flow revealed no significant aortic regurgitation. There is no significant aortic valvular stenosis. MITRAL VALVE The mitral valve leaflets are mildly thickened. There is no evidence of mitral valve prolapse. There is no mitral valve stenosis. Doppler and Color Flow revealed mild mitral regurgitation. TRICUSPID VALVE Doppler and Color Flow revealed mild tricuspid regurgitation. The pulmonary artery systolic pressure is estimated at 24 mmHg. There is no pulmonary hypertension. PULMONIC VALVE Doppler and Color Flow revealed no pulmonic valvular regurgitation. There is no pulmonic valvular liat nosis. GREAT VESSELS The aortic root is normal in size. The ascending aorta is normal in size. The pulmonary artery is nor mal. The IVC is normal in size and collapses >50% with inspiration. PERICARDIAL EFFUSION There is no evidence of significant pericardial effusion. Critical Notification Critical Value: No <Conclusion> The left ventricular systolic function is normal. The Ejection Fraction is 55-60%. There is normal LV segmental wall motion. Mild mitral regurgitation. Mild tricuspid regurgitation. The pulmonary artery systolic pressure is estimated at 24 mmHg. There is no evidence of significant pericardial effusion.
== END | disposition home or self-care (01) ==
LOC: ECHO 09:59
PROVIDERS: ATTEND Internal Medicine Cardiovascular Disease
DX: I08.1 Rheumatic disorders of both mitral and tricuspid valves (principal); R00.2 Palpitations; I10 Essential (primary) hypertension
CPT/HCPCS: 93306

== ENCOUNTER → 2019-08-16 | Outpatient (CLI) | payer BC ==
[~2019-08-16] MED LIST changes: -FERR-26 PO; +FERR325T14 PO; -GABA-586 PO; +GABA300C18 PO; -HYDR-2762 PO; +HYDR-2765 PO
--- NOTE | 2019-08-16 12:06 | RAD ---
EXAM: Abdomen sonogram. HISTORY: Pain. TECHNIQUE: Sonographic imaging of the abdomen was performed. COMPARISON: None. FINDINGS: There is hepatic steatosis. No focal hepatic lesion is seen. There is cholelithiasis. The common bile duct is normal in caliber. The kidneys are normal in size. There is no hydronephrosis. The pancreas, spleen, and inferior vena cava are unremarkable. The aorta is partially obscured due to bowel gas. IMPRESSION: 1. Hepatic steatosis. 2. Cholelithiasis. Electronically signed by: Meeta Adams MD (08/16/2019 12:03 PM) [id number]
== END | disposition home or self-care (01) ==
LOC: US 11:18
PROVIDERS: ATTEND Family Medicine
DX: K76.0 Fatty (change of) liver, not elsewhere classified (principal); K80.20 Calculus of gallbladder without cholecystitis without obstruction; R10.84 Generalized abdominal pain
CPT/HCPCS: 76700

== ENCOUNTER → 2019-12-05 | Outpatient (CLI) | payer BC ==
[~2019-12-05] MED LIST changes: +ALPR0.5T6 PO; +FESO8TAB PO; +LISI-130 PO; +METF500T16 PO; +METH4TAB6 PO; +OXYC1TAB22 PO; +POTA10TA12 PO; +TEMA30CA PO
[2019-12-05 11:40] LABS: BASO % 1 % (0-3); EOS # 0.1 x10^3/uL (0.0-0.7); EOS % 1 % (0-3); HEMATOCRIT 39.2 % (36.0-47.0); HEMOGLOBIN 12.9 g/dL (12.0-15.5); LYMPH # 2.5 x10^3/uL (1.0-4.8); LYMPH % 25 % (24-48); MEAN CORPUSCULAR HEMOGLOBIN 29 pg (25-35); MEAN CORPUSCULAR HGB CONC 33 g/dL (31-37); MEAN CORPUSCULAR VOLUME 87 fL (79-100); MONO # 0.6 x10^3/uL (0.0-1.1); MONO % 7 % (0-9); NEUT # 6.5 x10^3/uL (1.8-7.7); NEUT % 67 % (31-73); PLATELET COUNT 322 x10^3/uL (140-400); RED BLOOD COUNT 4.49 x10^6/uL (3.50-5.40); RED CELL DISTRIBUTION WIDTH 13.6 % (11.5-14.5); WHITE BLOOD COUNT 9.8 x10^3/uL (4.0-11.0)
[2019-12-05 11:43] LABS: ALBUMIN 3.3 g/dL (3.4-5.0); C-REACTIVE PROTEIN 21.6 mg/L (0-3.3); CALCIUM 8.4 mg/dL (8.5-10.1); CREATININE 0.7 mg/dL (0.6-1.0); GFR 87.9; POTASSIUM 3.9 mmol/L (3.5-5.1)
[2019-12-05 11:50] LABS: PROTHROMBIN TIME PATIENT 12.5 SEC (11.7-14.0)
--- NOTE | 2019-12-05 12:50 | RAD ---
EXAM: Chest, 2 views. HISTORY: Preoperative evaluation. COMPARISON: None. FINDINGS: 2 views of the chest are obtained. There is no infiltrate, pleural effusion or pneumothorax. There is mild elevation of the right hemidiaphragm. The heart is normal in size. IMPRESSION: No acute pulmonary finding. Electronically signed by: Meeta Adams MD (12/05/2019 12:47 PM) [facility]
[2019-12-06 01:09] LABS: HEMOGLOBIN A1C 6.1 % (4.8-5.6)
== END ==
LOC: SURGPAT 10:07
PROVIDERS: ATTEND Orthopaedic Surgery
DX: Z01.818 Encounter for other preprocedural examination (principal); M17.12 Unilateral primary osteoarthritis, left knee
CPT/HCPCS: 36415; 71046; 80048; 82040; 82306; 83036; 85025; 85610; 85730; 86140; 87641

== ENCOUNTER → 2019-12-22 | Outpatient (CLI) | payer BC | END | disposition home or self-care (01) | LOC: LAB 14:48 | PROVIDERS: ATTEND Orthopaedic Surgery | DX: Z20.828 Contact with and (suspected) exposure to other viral communicable diseases (principal) | CPT/HCPCS: U0003-CS ==

== ENCOUNTER 2019-12-26 06:05 | Inpatient (IN) | payer BC ==
[2019-12-26] VITALS (8 sets, daily range): BP systolic 122–138; BP diastolic 71–83
[~2019-12-26] VITALS: Ht 157.5 cm; Wt 103.9 kg
[~2019-12-26 06:05] MED LIST changes: +ACETAMINOPHEN 500 MG TABLET PO PRN; +CELECOXIB 100 MG CAPSULE. PO PRN; +MORPHINE SULFATE 5 MG, KETOROLAC 30MG VIAL 30 MG, ROPIVacaine 0.5% PF 60 ML, EPINEPHrin... INT ART ONE; +TRANEXAMIC ACID 1,000 MG in IV NS 50ML -- 1ST BAG INJ ONE
[2019-12-26] MEDS ORDERED: fentaNYL PF VIAL 100 MCG/2 ML VIAL ONE ×3 (06:47→08:46)
[2019-12-26] MEDS ORDERED: ROCURONIUM 50 MG/5 ML VIAL. ONE (06:47)
[2019-12-26] MEDS ORDERED: SEVOFLURANE > 120 MINUTES. IH ONE (06:47)
[2019-12-26] MEDS ORDERED: ONDANSETRON PF 4 MG/2 ML VIAL. ONE (06:48)
[2019-12-26] MEDS ORDERED: LIDOCAINE 2% PF 5 ML VIAL. ONE (06:48)
[2019-12-26] MEDS ORDERED: DEXAMETHASONE SOD PHOS 4 MG/ML VIAL ONE (06:48)
[2019-12-26] MEDS ORDERED: PROPOFOL 10 MG/ML (20ML) VIAL. IV ONE (06:48)
[2019-12-26] MEDS ORDERED: MIDAZOLAM HCL/PF 2 MG/2 ML VIAL. ONE (06:48)
[2019-12-26] MEDS ORDERED: TOBRAMYCIN POWDER 1.2 GM VIAL. ONE (06:59)
[2019-12-26] MEDS ORDERED: VANCOMYCIN 1 GM VIAL. ONE ×2 (06:59)
[2019-12-26] MEDS ORDERED: LIDOCAINE 1% PF 2 ML VIAL. ID PRN (07:00)
[2019-12-26] MEDS ORDERED: fentaNYL PF VIAL 100 MCG/2 ML VIAL IV PRN ×2 (07:00)
[2019-12-26] MEDS ORDERED: PROCHLORPERAZINE 10 MG/2 ML VIAL. IV PRN (07:00)
[2019-12-26] MEDS ORDERED: IV RINGERS,LACTATED 1000ML 1,000 ML IV SCH (07:00)
[2019-12-26] MEDS ORDERED: ONDANSETRON PF 4 MG/2 ML VIAL. IV PRN (07:00)
--- NOTE | 2019-12-26 07:00 | PDOC1 ---
History and Physical Date of Admission Date of Admission DATE: 12/26/19 TIME: 06:56 Identification/Chief Complaint Chief Complaint Left knee osteoarthritis pain Source Source: Caregiver, Chart review, Patient History of Present Illness History of Present Illness This 54-year-old woman has osteoarthritis, with prior right knee arthroplasty. She has left knee osteoarthritis and bilateral ankle osteoarthritis for which she has had nonoperative treatment for several years. She has done physical therapy, had cortisone injections, taken oral medications, but still has persistent symptoms in the left knee which limit her activities. Past Medical History Cardiovascular: HTN Psych: Depression Past Surgical History Past Surgical History She had a cholecystectomy earlier this year without complications Past Surgical History: Cholecystectomy, Hysterectomy, Other Family History Family History: Diabetes Social History Smoke: No ALCOHOL: none Drugs: None Current Medications Current Medications Current Medications Morphine Sulfate 5 mg/Ketorolac Tromethamine 30 mg/Ropivacaine 60 ml/Epinephrine HCl 0.5 mg/Sodium Chloride 100 ml @ 100 mls/hr 1X ONCE INT ART ; Start 12/26/19 at 06:00; Stop 12/26/19 at 06:59 Ondansetron HCl (Zofran) 4 mg PRN Q6HRS PRN IV NAUSEA/VOMITING; Start 12/26/19 at 07:00; Stop 12/27/19 at 06:59 Fentanyl Citrate (Fentanyl 2ml Vial) 25 mcg PRN Q5MIN PRN IV MILD PAIN 1-3; Start 12/26/19 at 07:00; Stop 12/27/19 at 06:59 Fentanyl Citrate (Fentanyl 2ml Vial) 50 mcg PRN Q5MIN PRN IV MODERATE TO SEVERE PAIN; Start 12/26/19 at 07:00; Stop 12/27/19 at 06:59 Morphine Sulfate (Morphine Sulfate) 1 mg PRN Q10MIN PRN IV SEVERE PAIN 7-10; Start 12/26/19 at 07:00; Stop 12/27/19 at 06:59 Ringer's Solution 1,000 ml @ 30 mls/hr Q24H IV ; Start 12/26/19 at 07:00; Stop 12/26/19 at 18:59 Lidocaine HCl (Xylocaine-Mpf 1% 2ml Vial) 2 ml PRN 1X PRN ID PRIOR TO IV START; Start 12/26/19 at 07:00; Stop 12/27/19 at 06:59 Hydromorphone HCl (Dilaudid) 0.5 mg PRN Q10MIN PRN IV SEV PAIN, Second choice; Start 12/26/19 at 07:00; Stop 12/27/19 at 06:59 Prochlorperazine Edisylate (Compazine) 5 mg PACU PRN PRN IV NAUSEA, MRX1; Start 12/26/19 at 07:00; Stop 12/27/19 at 06:59 Acetaminophen (Tylenol) 1,000 mg 1X PREOP PRN PO PRIOR TO PROCEDURE; Start 12/26/19 at 06:00; Stop 12/26/19 at 18:00 Cefazolin Sodium/ Dextrose 50 ml @ 100 mls/hr 1X PREOP PRN IV PRIOR TO PROCEDURE; Start 12/26/19 at 06:00; Stop 12/26/19 at 18:00 Tranexamic Acid 1000 mg/Sodium Chloride 60 ml @ 60 mls/hr 1X PERIOP ONCE INJ ; Start 12/26/19 at 06:00; Stop 12/26/19 at 06:59 Tranexamic Acid 1000 mg/Sodium Chloride 60 ml @ 60 mls/hr 1X PERIOP ONCE INJ ; Start 12/26/19 at 08:00; Stop 12/26/19 at 08:59 Celecoxib (CeleBREX) 400 mg 1X PREOP PRN PO PER PROTOCOL; Start 12/26/19 at 06:00; Stop 12/26/19 at 21:00 Insulin Human Lispro (HumaLOG VIAL for OP,RR ONLY) 0-10 units PRN Q1HR PRN SQ PER PROTOCOL; Start 12/26/19 at 06:30; Stop 12/27/19 at 06:29 Sevoflurane (Ultane) 90 ml STK-MED ONCE IH ; Start 12/26/19 at 06:47; Stop 12/26/19 at 06:47; Status DC Rocuronium [place] (Zemuron) 50 mg STK-MED ONCE .ROUTE ; Start 12/26/19 at 06:47; Stop 12/26/19 at 06:47; Status DC Fentanyl Citrate (Fentanyl 2ml Vial) 100 mcg STK-MED ONCE .ROUTE ; Start 12/26/19 at 06:47; Stop 12/26/19 at 06:48; Status DC Midazolam HCl (Versed) 2 mg STK-MED ONCE .ROUTE ; Start 12/26/19 at 06:48; Stop 12/26/19 at 06:48; Status DC Propofol (Diprivan) 200 mg STK-MED ONCE IV ; Start 12/26/19 at 06:48; Stop 12/26/19 at 06:48; Status DC Lidocaine HCl (Lidocaine Pf 2% Vial) 5 ml STK-MED ONCE .ROUTE ; Start 12/26/19 at 06:48; Stop 12/26/19 at 06:48; Status DC Dexamethasone Sodium Phosphate (Decadron) 4 mg STK-MED ONCE .ROUTE ; Start 12/26/19 at 06:48; Stop 12/26/19 at 06:48; Status DC Ondansetron HCl (Zofran) 4 mg STK-MED ONCE .ROUTE ; Start 12/26/19 at 06:48; Stop 12/26/19 at 06:48; Status DC Active Scripts Active Reported Alprazolam 0.5 Mg Tablet 1 Tab PO Q8HRS PRN Methylprednisolone 4 Mg Tab.ds.pk 4 Mg PO DAILY Temazepam 30 Mg Capsule 1 Cap PO QHS Klor-Con 10 (Potassium Chloride) 10 Meq Tablet.er 1 Tab PO DAILY 30 Days Percocet 10-325 Mg Tablet (Oxycodone/Acetaminophen) 1 Each Tablet 1 Tab PO PRN Q4-6HRS PRN MDD 6 Tablet(s) 5 Days Metformin Hcl 500 Mg Tablet 500 Mg PO BIDWMEALS Toviaz (Fesoterodine Fumarate) 8 Mg Tab.er.24h 1 Tab PO DAILY Lisinopril 40 Mg Tablet 1 Tab PO DAILY Ferrous Sulfate 325 Mg Tablet 1 Tab PO DAILY Allergies Allergies: Coded Allergies: No Known Drug Allergies (Unverified , 12/26/19) Physical Exam General: Alert, Cooperative HEENT: Atraumatic Heart: RRR Extremities: No clubbing, No cyanosis, Normal pulses, Other (The LEFT knee s hows a mildly antalgic gait. There is varus alignment. No masses. No detectable effusion. Tenderness on the joint lines. Range of motion is 5-115 degrees. There is crepitus with range of motion, and pain at the extremes of motion. The knee is stable to varus and valgus stress without subluxation or laxity. Muscle strength is slightly weak for the quadriceps 4+/5 which may be due to pain or avoidance, and does not seem neurogenic, and the muscle tone and bulk is slightly decreased. The hamstring strength is 5/5. The skin is normal with no scars, rashes, lesions or ulcers. Light touch sensation is intact. No edema and no varicosities. Dorsalis pedis pulse is intact and capillary refill is normal. ) Vitals Vitals Vital Signs Date Time Temp Pulse Resp B/P (MAP) Pulse Ox O2 Delivery O2 Flow Rate FiO2 12/26/19 06:47 97.1 76 20 96 97.1 12/26/19 06:31 134/66 Room Air Labs Labs Laboratory Tests Test 12/26/19 06:51 Glucose (Fingerstick) 116 mg/dL (70-99) Laboratory Tests Test 12/26/19 06:51 Glucose (Fingerstick) 116 mg/dL (70-99) Images Images Left knee x-rays 11/23/2019 show nearly tmof-ah-vlio contact medially, severe narrowing, sclerosis, varus malalignment and osteophyte formation. The lateral and patellar skyline views also show narrowing and osteophyte formation. There are moderate multiple osteophytes, and definite sclerosis, so this is Kellgren-Nelson grade 3 osteoarthritis. [facility] [address] [place] [address] IMAGING REPORT Signed PATIENT: JUVENTINO OLIVA ACCOUNT: [id number] : 1965 LOCATION: [facility] AGE: 54 SEX: F EXAM STATUS: PRE CLI ORD. PHYSICIAN: SHAI SAENZ MD REASON: left knee pain, no known injury PROCEDURE: KNEE STANDING BILAT AP INDICATION: Reason: left knee pain, no known injury / Spl. Instructions: / History: COMPARISON: May 2016 IMPRESSION: Frontal view of the bilateral knees as well as lateral and sunrise view of the left knee obtained. Right knee arthroplasty changes are visualized. Patella baja is suspected. Severe degenerative changes of the left knee with osteophyte formation as well as medial joint space narrowing. No acute fracture or dislocation. Electronically signed by: Tiny Lopez MD (11/23/2019 6:08 PM) [id number] DICTATED and SIGNED BY: TINY LOPEZ MD DATE: 11/23/19 180 VTE Prophylaxis Ordered VTE Prophylaxis Devices: Yes VTE Pharmacological Prophylaxi: Yes Assessment/Plan Assessment/Plan She and I have discussed the risks benefits and alternatives of total knee arthroplasty. Although she is somewhat young to have a total knee arthroplasty, I still believe that is the best option for her at this time. We discussed the potential risks of infection, neurovascular injury, bleeding, blood clots, need for revision surgery, or other potential surgical or anesthetic complications. All of her questions about surgery were answered. I recommended a robotic total knee arthroplasty. She also has bilateral ankle osteoarthritis and will have cortisone injections under anesthesia into both ankles. All of her questions about surgery were answered and she desires to proceed. Her daughter translated. Justifications for Admission Other Justification SHAI SAENZ MD Dec 26, 2019 07:00
[2019-12-26] MEDS: INSULIN LISPRO 100 UNIT/ML 3ML VIAL for OP,RR ONLY. SQ PRN ×2 (07:02→10:01)
[2019-12-26] MEDS ORDERED: SCOPOLAMINE 1.5MG PATCH. TD ONE (07:15)
[2019-12-26] MEDS ORDERED: methylPREDNISolone ACETATE 80 MG/ML VIAL. ONE ×2 (07:17→07:18)
[2019-12-26] MEDS ORDERED: BUPIVACAINE-EPI 0.5%-1:200000 MPF 30 ML VIAL. ONE (07:17)
[2019-12-26] MEDS ORDERED: methylPREDNISolone ACETATE 40 MG/ML VIAL. ONE ×2 (07:20)
[2019-12-26] MEDS ORDERED: PHENYLEPHRINE in 0.9% NACL PF 1 MG/10 ML SYRINGE. IV ONE (07:32)
[2019-12-26] MEDS ORDERED: NEOSTIGMINE METHYLSULFATE 5 MG/5 ML SYRINGE. ONE (07:38)
[2019-12-26] MEDS ORDERED: GLYCOPYRROLATE 1 MG/5 ML VIAL. ONE (07:38)
[2019-12-26] MEDS ORDERED: TRANEXAMIC ACID 1,000 MG in IV NS 50ML -- 2ND BAG INJ ONE (08:00)
[2019-12-26] MEDS ORDERED: KETAMINE HCL IN NACL, ISO-OSM 50 MG/5 ML SYRINGE ONE (08:06)
[2019-12-26] MEDS ORDERED: ESMOLOL 100 MG/10 ML VIAL. IVP ONE (09:22)
--- NOTE | 2019-12-26 09:40 | PDOC4 ---
Operative Note Operative Note Date of Procedure: December 26, 2019 Pre-Op Diagnosis: Unilateral primary osteoarthritis, left knee. M17.12 Primary osteoarthritis, right ankle and foot - M19.071 Primary osteoarthritis, left ankle and foot - M19.072 Post-Op Diagnosis: same Procedures: left total knee arthroplasty with patella resurfacing, robotic assisted, CPT 72345 Right ankle joint corticosteroid injection CPT 89917 Left ankle joint corticosteroid injection CPT 85433 Surgeon: Shai Moreno MD Fire Loss Prevention Engineer: POPPY Shea, DANY Roper Anesthesia: General EBL: 100 mL Specimens Obtained: left knee bone and soft tissue Complications: none Drains: Hemovac plus pain catheter Tourniquet time: 56 Minutes Tourniquet Pressure: 300 mm Hg Indications for Procedure: Knee arthritis pain, affecting quality of life, unrelieved by nonoperative management Findings: Severe osteoarthritis with bone on bone contact at the medial tibiofemoral joint and in the patellofemoral joint, with high-grade cartilage loss in the lateral compartment. Implants: Willoughby [employer] Nephew Journey II Total Knee System, Size 4 left bicruciate stabilized Journey II BCS Oxinium femoral component, size 3 left Journey nonporous tibial baseplate, size 3-4 9 mm left Journey II BCS XLPE articular insert, 32 mm oval Floridalma II resurfacing patellar component Procedure in Detail: The patient was identified in the preoperative holding area, and the correct left lower extremity was marked by me. The patient was taken to the operating room where the patient was anesthetized by the Department of Anesthesia. Preoperative antibiotics were given intravenously. Tranexamic acid 1 g was given intravenously for intraoperative hemostasis. A "time-out" procedure was performed. The patient was positioned supine on the operative table with a tourniquet on the upper left thigh. A left hip bump and heel bump were attached to the operating table for later intraoperative positioning. After sterile prep of both ankle joints with ChloraPrep, both ankle joints were injected under sterile technique using 40 mg of Depo-Medrol and 1 mL of 0.5% bupivacaine with epinephrine, for each ankle joint. The left lower limb was thoroughly scrubbed, then sterile Chloraprep solution was applied, and the limb was draped in sterile fashion. The operating team wore exhaust ventilated hoods with Rormix Personal Protection Toga Zippered Peel-Away protection system. An impervious stockinet and an adhesive drape were used such that the skin was entirely covered. The limb was exsanguinated with an Esmarch bandage, and the tourniquet was inflated. A midline skin incision was made with a scalpel using the patella and tibial tubercle as landmarks. Electrocautery was used for hemostasis. My wellness assistant used rake retractors and a laparotomy sponge. A medial parapatellar arthrotomy incision was used with extension into the distal quadriceps tendon. The patella was retracted laterally and Hohmann retractors were now used by my wellness assistant. Excess synovium, the menisci, and the cruciate ligaments were resected sharply. A periarticular multimodal ropivacaine anesthetic injection was used in the suprapatellar pouch and distal quadriceps muscle. The patella was everted and exposed. The patella thickness was measured with a caliper, and then cut freehand with a saw, using caliper measurements to assess the resection. The lateral retinaculum was partially released from the lateral patella using electrocautery. Rongeurs were used to make sure there were no remaining exposed patellar osteophytes medially or laterally. The patella was sized, and then drilled for an oval three-peg patella component. The tibial tracker array for the NAVIO system was applied to the tibial crest four finger breadths below the tibial tubercle, using percutaneous incisions and bicortical pins. The femoral tracker array was applied outside of the original incision using two separate stab incisions using bicortical pins. Checkpoint verification pins were applied to the femur and tibia. Using the point probe, the medial and lateral malleoli were localized and the locations were stored. The center of the tibia was noted at the anterior cruciate ligament insertion and stored. The center of the femur was marked at the intersection of Whitesidess line with the transepicondylar axis. The hip center calculation was performed with range of motion of the hip. The femur neutral position was identified, and simulated weightbearing was performed with axial compression on the foot. Range of motion without stress was performed and the data collected. Range of motion with valgus stress, and range of motion with varus stress data collection was also performed. Rotational references include the Whitesidess line, and the trans-epicondylar axis. The femoral articular surface was now mapped in 3 dimensions using the point probe and digital data collected. The tibial condyle articular surfaces and cortical edges were mapped in 3 dimensions using the point probe including the medial and lateral tibial plateau. Implant planning was now performed on-screen with manipulation of the implant sizes, cut thicknesses and gaps, component rotation, component flexion/extension and component varus/valgus until satisfactory ligament balance, alignment and stability of the knee was expected throughout the range of motion. My wellness assistant held a Hohmann retractor, a medial Z-retractor, and an Army-Delphos retractor to protect the medial and lateral collateral ligaments, the patellar tendon, the skin and the other soft tissues. The point probe was used to confirm the location of the checkpoint verification pins. The distal femoral surface was now prepared using the Anspach meng with footpedal, and the NAVIO handpiece for bone removal to the previously planned distal femoral resection. The crosshairs at the pin locations were marked by using a mallet and the point probe for definitive location. A 5-in-1 Journey II cutting guide was then applied and the position was checked with the virtual karen wing from the NAVIO to ensure proper placement as the pins were applied. The posterior, anterior, and all chamfer cuts were made with the oscillating saw. Excess bone was removed with an osteotome and rongeurs. The tibial cutting guide was applied, positioned using the NAVIO virtual karen wing, and secured to the upper tibia using three pins at the previously planned location. The virtual karen wing was used to confirm the resection depth, slope and coronal alignment. The upper tibia was cut made with an oscillating saw. My wellness assistant held Hohmann retractors and a posterior cruciate ligament retractor to protect the medial and lateral collateral ligaments, the patellar tendon, the skin, the peroneal nerve and the other soft tissues. The upper tibia was sized with a trial baseplate. The posterior compartment was cleared of osteophytes and loose bodies. The periarticular anesthetic injection was used in the posterior compartment. The box cut for a posterior stabilized component was made. A preliminary reduction was performed with a trial femur, trial tibial baseplate and trial polyethylene. The NAVIO system was used to confirm range of motion, and postoperative stressed gap assessment. No additional releases were required. The stability was assessed using different thicknesses of tibial articular surface to find satisfactory stability and good range of motion. The rotation of the tibial component was marked on the upper tibia. Final trial reduction was now performed verifying patella tracking and tibiofemoral stability and alignment. The bone pins and tracker arrays were removed, and the checkpoint verification pins were removed. The tibia preparation was completed with a drill, saw, and fin punch at the previously noted rotation. The final implants were verified and opened. Outer gloves were changed by the operating team. Betadine lavage was used. The bone cuts were irrigated with saline using the Vanksen InterPulse device and then dried with suction and laparotomy sponges. Two packages of Willoughby + Nephew Rally HV bone cement were mixed in powdered form with Vancomycin 1gm and Tobramycin 1.2 gm, and then vacuum-mixed with the monomer, and placed into a cement gun. The cut surfaces of the bone were thoroughly dried with suction and with laparotomy sponges for cement interdigitation. The final components were cemented into place. The knee was kept at full extension while the cement hardened, and excess cement was removed. Tranexamic acid 1 g was redosed intravenously for additional intraoperative hemostasis. The tourniquet was released, and electrocautery was used for hemostasis. A final periarticular anesthetic injection was used for pain relief. The bone pin sites on the tibial crest were closed with #3-0 Nylon sutures. A final check of [id number] and stability was made, and the polyethylene implant final size was chosen. The polyethylene implant was secured to the tibial baseplate, and the knee was reduced a final time and range of motion and stability was confirmed. Thorough irrigation was used. A pain catheter, and a 15 Fr Hemovac were inserted. Topical Vancomycin 1 gm was used during the closure. The arthrotomy was closed with interrupted [id number] #1 Vicryl suture. The arthrotomy incision was then run with #1 STRATAFIX Symmetric PDS Plus Knotless suture. The subcutaneous tissues were approximated initially with #2-0 Vicryl inverted interrupted sutures by my wellness assistant. Next the subcuticular layer was approximated in a running fashion with #3-0 STRATAFIX suture by my wellness assistant. The skin incision was then covered and reinforced by my wellness assistant with Acticoat, followed by a GABRIEL single use negative pressure wound therapy dressing Soft roll and an Sourav wrap were applied. Needle and sponge counts were correct. There were no apparent complications. The patient returned to the recovery room in stable condition. SHAI MORENO MD Dec 26, 2019 09:40
[2019-12-26] MEDS ORDERED: 0.9 % SODIUM CHLORIDE 10 ML DISP.SYRIN. IV PRN (09:45)
[2019-12-26] MEDS ORDERED: diphenhydrAMINE 50 MG/ML VIAL IVP PRN (09:45)
[2019-12-26] MEDS ORDERED: PROCHLORPERAZINE 5 MG TABLET. PO PRN (09:45)
[2019-12-26] MEDS ORDERED: CALCIUM CARBONATE 500 MG TAB.CHEW PO PRN (09:45)
[2019-12-26] MEDS ORDERED: MORPHINE SULFATE 4 MG/ML VIAL. IVP PRN (09:45)
[2019-12-26] MEDS ORDERED: fentaNYL PF VIAL 100 MCG/2 ML VIAL IVP PRN ×2 (09:45)
[2019-12-26] MEDS ORDERED: ZOLPIDEM 5 MG TABLET. PO PRN (09:45)
[2019-12-26] MEDS ORDERED: METOCLOPRAMIDE HCL 10 MG/2 ML VIAL. IVP PRN (09:45)
[2019-12-26] MEDS ORDERED: oxyCODONE/APAP 10/325 1 TAB TABLET PO PRN ×2 (09:45→10:27)
[2019-12-26] MEDS ORDERED: DEXTROSE 50% 25 GM / 50ML DISP.SYRIN. IV PRN (09:45)
[2019-12-26] MEDS: MORPHINE SULFATE 2 MG/ML VIAL. IV PRN ×2 (09:52→09:58)
[2019-12-26] MEDS ORDERED: HYDROmorphone 2 MG/ML VIAL ONE (09:59)
[2019-12-26] MEDS ORDERED: INSULIN LISPRO 100 UNIT/ML 3ML VIAL for OP,RR ONLY. SQ ONE ×2 (10:00)
[2019-12-26] MEDS: HYDROmorphone 2 MG/ML VIAL IV PRN ×4 (10:03→10:18)
--- NOTE | 2019-12-26 10:17 | RAD ---
Left knee 2 views INDICATION: Postop COMPARISON: 11/23/2019 left knee x-rays FINDINGS: Interval left total knee arthroplasty. Good alignment. Surgical drain in the superior aspect of the right knee joint. Small amount of gas and fluid present in the anterior left knee soft tissues. IMPRESSION: Expected immediate postoperative appearance following interval left total knee arthroplasty. Electronically signed by: Nikky Dejesus MD (12/26/2019 10:14 AM) [id number]
--- NOTE | 2019-12-26 10:32 | NUR ---
Arrived to unit by bed from PACU. Awakens easily. No c/o at this time. Left leg dressing is d/i with IAC and Hemovac drain. Elevated on pillow and ice pack. Able to wiggle toes easily, warm to touch and pedal pulses + bilaterally. DONALDO on left foot and SCD on right leg. IVF's intact and infusing. Place O2 at 2L per n/c was sating 86%. Rechecked O2 sat with oxygen and 93-94%. Side rails up x's 2 with call light in reach. Daughter arrived. Cont. monitor.
[2019-12-26] MEDS: INSULIN LISPRO 300 UNITS/3 ML VIAL. SQ SCH ×2 (11:43→16:26)
[2019-12-26] MEDS: ONDANSETRON ODT 4 MG TAB.RAPDIS. PO SCH ×2 (12:00→16:41)
[2019-12-26] MEDS: MORPHINE SULFATE 2 MG/ML VIAL. IVP PRN (12:09)
[2019-12-26] MEDS: ONDANSETRON PF 4 MG/2 ML VIAL. IVP SCH ×2 (12:09→18:00)
[2019-12-26] MEDS: SENNOSIDES/DOCUSATE 8.6/50MG TABLET. PO SCH (16:41)
[2019-12-26] MEDS: oxyCODONE/APAP 10/325 1 TAB TABLET PO PRN ×2 (16:42→21:06)
[2019-12-26] MEDS: KETOROLAC 30MG VIAL 30 MG, BUPIVACAINE MPF 0.25% 20 ML, EPINEPHrine 0.5 MG in TOTAL VOL... INT ART SCH (17:14)
[2019-12-26] MEDS ORDERED: ALPRAZolam 0.5 MG TABLET PO PRN (18:15)
[2019-12-26] MEDS: metFORMIN 500 MG TABLET PO SCH (18:30)
[2019-12-26] MEDS: ASPIRIN ENTERIC COATED 325 MG TABLET.DR. PO SCH (21:06)
[2019-12-27] MEDS: oxyCODONE/APAP 10/325 1 TAB TABLET PO PRN ×5 (01:46→19:37)
[2019-12-27 02:50] VITALS: BP 119/72
[2019-12-27] MEDS: KETOROLAC 30MG VIAL 30 MG, BUPIVACAINE MPF 0.25% 20 ML, EPINEPHrine 0.5 MG in TOTAL VOL... INT ART SCH (05:04)
[2019-12-27] MEDS: IV NORMAL SALINE 1000ML BAG 1,000 ML IV SCH ×2 (05:09→09:40)
[2019-12-27] MEDS: ONDANSETRON PF 4 MG/2 ML VIAL. IVP SCH ×2 (06:00)
[2019-12-27] MEDS ORDERED: MAGNESIUM HYDROXIDE 2,400 MG/30 ML ORAL.SUSP. PO PRN (06:00)
[2019-12-27] MEDS: ONDANSETRON ODT 4 MG TAB.RAPDIS. PO SCH ×2 (06:00)
[2019-12-27 06:34] VITALS: BP 121/70
[2019-12-27 07:24] LABS: HEMATOCRIT 29.1 % (36.0-47.0); HEMOGLOBIN 9.7 g/dL (12.0-15.5); RED BLOOD COUNT 3.36 x10^6/uL (3.50-5.40); RED CELL DISTRIBUTION WIDTH 13.4 % (11.5-14.5); WHITE BLOOD COUNT 11.1 x10^3/uL (4.0-11.0)
[2019-12-27] MEDS: SENNOSIDES/DOCUSATE 8.6/50MG TABLET. PO SCH (07:56)
[2019-12-27] MEDS: ASPIRIN ENTERIC COATED 325 MG TABLET.DR. PO SCH ×2 (07:57→21:10)
[2019-12-27] MEDS: MULTIVITAMIN with MINERAL TABLET. PO SCH (07:57)
[2019-12-27] MEDS: OXYBUTYNIN CHLORIDE 5 MG TABLET PO SCH ×3 (07:57→21:10)
[2019-12-27] MEDS: POTASSIUM CHLORIDE 10 MEQ TABLET.ER. PO SCH (07:58)
[2019-12-27] MEDS: metFORMIN 500 MG TABLET PO SCH ×2 (07:58→16:57)
[2019-12-27] MEDS: INSULIN LISPRO 300 UNITS/3 ML VIAL. SQ SCH ×3 (07:58→16:37)
[2019-12-27] MEDS: LISINOPRIL 20 MG TABLET PO SCH (08:02)
[2019-12-27] MEDS: MORPHINE SULFATE 2 MG/ML VIAL. IVP PRN (08:03)
[2019-12-27] MEDS: CELECOXIB 100 MG CAPSULE. PO SCH (08:11)
--- NOTE | 2019-12-27 08:43 | PDOC ---
ORTHO PROGRESS NOTES DATE: 12/27/19 TIME: 08:40 Subjective Patient is states per her daughter's interpretation that she is painful today. Post-op Day: 1 Procedure Left total knee arthroplasty with patellar resurfacing robotic assisted Vitals Vital Signs Date Time Temp Pulse Resp B/P (MAP) Pulse Ox O2 Delivery O2 Flow Rate FiO2 12/27/19 08:03 Room Air 12/27/19 08:02 99 129/73 12/27/19 06:34 98.7 18 95 98.7 12/26/19 15:03 2.0 Labs Laboratory Tests Test 12/26/19 06:51 12/26/19 09:55 12/26/19 11:32 12/26/19 16:23 Glucose (Fingerstick) 116 mg/dL (70-99) 193 mg/dL (70-99) 136 mg/dL (70-99) 130 mg/dL (70-99) Test 12/26/19 20:41 12/27/19 06:28 12/27/19 06:40 Glucose (Fingerstick) 132 mg/dL (70-99) 136 mg/dL (70-99) White Blood Count 11.1 x10^3/uL (4.0-11.0) Red Blood Count 3.36 x10^6/uL (3.50-5.40) Hemoglobin 9.7 g/dL (12.0-15.5) Hematocrit 29.1 % (36.0-47.0) Mean Corpuscular Volume 87 fL (79-100) Mean Corpuscular Hemoglobin 29 pg (25-35) Mean Corpuscular Hemoglobin Concent 33 g/dL (31-37) Red Cell Distribution Width 13.4 % (11.5-14.5) Platelet Count 208 x10^3/uL (140-400) Laboratory Tests Test 12/26/19 09:55 12/26/19 11:32 12/26/19 16:23 12/26/19 20:41 Glucose (Fingerstick) 193 mg/dL (70-99) 136 mg/dL (70-99) 130 mg/dL (70-99) 132 mg/dL (70-99) Test 12/27/19 06:28 12/27/19 06:40 Glucose (Fingerstick) 136 mg/dL (70-99) White Blood Count 11.1 x10^3/uL (4.0-11.0) Red Blood Count 3.36 x10^6/uL (3.50-5.40) Hemoglobin 9.7 g/dL (12.0-15.5) Hematocrit 29.1 % (36.0-47.0) Mean Corpuscular Volume 87 fL (79-100) Mean Corpuscular Hemoglobin 29 pg (25-35) Mean Corpuscular Hemoglobin Concent 33 g/dL (31-37) Red Cell Distribution Width 13.4 % (11.5-14.5) Platelet Count 208 x10^3/uL (140-400) Notes Awake and alert sitting in chair at bedside Assessment and Plan Postop day #1 status post left total hip arthroplasty with patellar resurfacing and robotic assisted. Motor and sensation intact distally at the left lower extremity. Dressing does have new drainage as the drain is leaking around the insertion s ite. Encourage PT. DYLON RAUSCH APRN Dec 27, 2019 08:43
[2019-12-27] MEDS: methylPREDNISolone 4 MG TABLET. PO SCH (09:57)
[2019-12-27] MEDS ORDERED: ONDANSETRON ODT 4 MG TAB.RAPDIS. PO PRN (12:00)
[2019-12-27] MEDS ORDERED: ONDANSETRON PF 4 MG/2 ML VIAL. IVP PRN (12:00)
--- NOTE | 2019-12-27 13:38 | PDOC ---
PROGRESS NOTES Date of Service DATE: 12/27/19 TIME: 13:38 Subjective Subjective Problems overnight: Objective Vital Signs Vital Signs Date Time Temp Pulse Resp B/P (MAP) Pulse Ox O2 Delivery O2 Flow Rate FiO2 12/27/19 11:02 Room Air 12/27/19 08:02 99 129/73 12/27/19 06:34 98.7 18 95 98.7 12/26/19 15:03 2.0 Labs Laboratory Tests Test 12/26/19 06:51 12/26/19 09:55 12/26/19 11:32 12/26/19 16:23 Glucose (Fingerstick) 116 mg/dL (70-99) 193 mg/dL (70-99) 136 mg/dL (70-99) 130 mg/dL (70-99) Test 12/26/19 20:41 12/27/19 06:28 12/27/19 06:40 12/27/19 11:32 Glucose (Fingerstick) 132 mg/dL (70-99) 136 mg/dL (70-99) 155 mg/dL (70-99) White Blood Count 11.1 x10^3/uL (4.0-11.0) Red Blood Count 3.36 x10^6/uL (3.50-5.40) Hemoglobin 9.7 g/dL (12.0-15.5) Hematocrit 29.1 % (36.0-47.0) Mean Corpuscular Volume 87 fL (79-100) Mean Corpuscular Hemoglobin 29 pg (25-35) Mean Corpuscular Hemoglobin Concent 33 g/dL (31-37) Red Cell Distribution Width 13.4 % (11.5-14.5) Platelet Count 208 x10^3/uL (140-400) Laboratory Tests Test 12/26/19 16:23 12/26/19 20:41 12/27/19 06:28 12/27/19 06:40 Glucose (Fingerstick) 130 mg/dL (70-99) 132 mg/dL (70-99) 136 mg/dL (70-99) White Blood Count 11.1 x10^3/uL (4.0-11.0) Red Blood Count 3.36 x10^6/uL (3.50-5.40) Hemoglobin 9.7 g/dL (12.0-15.5) Hematocrit 29.1 % (36.0-47.0) Mean Corpuscular Volume 87 fL (79-100) Mean Corpuscular Hemoglobin 29 pg (25-35) Mean Corpuscular Hemoglobin Concent 33 g/dL (31-37) Red Cell Distribution Width 13.4 % (11.5-14.5) Platelet Count 208 x10^3/uL (140-400) Test 12/27/19 11:32 Glucose (Fingerstick) 155 mg/dL (70-99) Imaging Report reviewed, images independently reviewed. Satisfactory total knee arthroplasty with patellar resurfacing, without apparent complications. [facility] [address] [place] [address] IMAGING REPORT Signed PATIENT: JUVENTINO OLIVA ACCOUNT: [id number] : 1965 LOCATION: [address] [place] [address] AGE: 54 SEX: F EXAM STATUS: ADM IN ORD. PHYSICIAN: SHAI SAENZ MD REASON: POST OP PROCEDURE: KNEE LEFT 2V Left knee 2 views INDICATION: Postop COMPARISON: 11/23/2019 left knee x-rays FINDINGS: Interval left total knee arthroplasty. Good alignment. Surgical drain in the superior aspect of the right knee joint. Small amount of gas and fluid present in the anterior left knee soft tissues. IMPRESSION: Expected immediate postoperative appearance following interval left total knee arthroplasty. Electronically signed by: Fariha Dejesus MD (12/26/2019 10:14 AM) [id number] DICTATED and SIGNED BY: FARIHA DEJESUS MD DATE: 12/26/19 1014 Assessment Assessment POD# Justicifation of Admission Dx: Justifications for Admission: Justification of Admission Dx: Yes SHAI SAENZ MD Dec 27, 2019 13:38
[2019-12-27] MEDS ORDERED: BISACODYL 10 MG SUPP.RECT. PR PRN (16:00)
[2019-12-27 18:25] VITALS: BP 124/79
[2019-12-28] MEDS: oxyCODONE/APAP 10/325 1 TAB TABLET PO PRN ×5 (00:12→17:16)
[2019-12-28 05:28] VITALS: BP 109/68
[2019-12-28 06:10] LABS: HEMATOCRIT 26.9 % (36.0-47.0)
[2019-12-28] MEDS: INSULIN LISPRO 300 UNITS/3 ML VIAL. SQ SCH ×3 (08:00→17:00)
[2019-12-28] MEDS: ASPIRIN ENTERIC COATED 325 MG TABLET.DR. PO SCH ×2 (08:18→20:48)
[2019-12-28] MEDS: metFORMIN 500 MG TABLET PO SCH ×2 (08:18→17:16)
[2019-12-28] MEDS: methylPREDNISolone 4 MG TABLET. PO SCH (08:18)
[2019-12-28] MEDS: SENNOSIDES/DOCUSATE 8.6/50MG TABLET. PO SCH (08:18)
[2019-12-28] MEDS: OXYBUTYNIN CHLORIDE 5 MG TABLET PO SCH ×3 (08:18→20:48)
[2019-12-28] MEDS: POTASSIUM CHLORIDE 10 MEQ TABLET.ER. PO SCH (08:18)
[2019-12-28] MEDS: CELECOXIB 100 MG CAPSULE. PO SCH (08:18)
[2019-12-28] MEDS: MULTIVITAMIN with MINERAL TABLET. PO SCH (08:18)
[2019-12-28] MEDS: LISINOPRIL 20 MG TABLET PO SCH (08:20)
[2019-12-28] MEDS ORDERED: FLU VACC QS 2020-21(6MOS+)/PF 0.5 ML SYRINGE. VAX IM ONE (09:00)
[2019-12-28] MEDS: IV NORMAL SALINE 1000ML BAG 1,000 ML IV SCH (09:40)
[2019-12-28] MEDS: MORPHINE SULFATE 2 MG/ML VIAL. IVP PRN (16:11)
[2019-12-28 18:36] VITALS: BP 128/76
--- NOTE | 2019-12-28 19:41 | PDOC ---
PROGRESS NOTES Date of Service DATE: 12/28/19 TIME: 19:38 Subjective Subjective Still having a lot of pain. Still using IV pain medicines. She remembers in 2017 that we used a different pain medicine protocol with some scheduled tramadol and Tylenol and she requested to go back on that protocol. Objective Vital Signs Vital Signs Date Time Temp Pulse Resp B/P (MAP) Pulse Ox O2 Delivery O2 Flow Rate FiO2 12/28/19 18:36 98.3 83 18 128/76 (93) 94 Room Air 98.3 12/26/19 15:03 2.0 Physical Exam She has quite a bit of ecchymosis but there is no blistering. There is no evidence of compartment syndrome. The ecchymosis is mostly medial and tracks posteriorly. She has tenderness at the knee consistent with the bruising and with recent surgery. There is some bloody drainage from the drain site which is typical and not worrisome at this point. There is only spotty drainage on the Wang dressing. The calf is soft and nontender. The toes are neurovascularly intact with good active range of motion and sensation. Labs Laboratory Tests Test 12/26/19 20:41 12/27/19 06:28 12/27/19 06:40 12/27/19 11:32 Glucose (Fingerstick) 132 mg/dL (70-99) 136 mg/dL (70-99) 155 mg/dL (70-99) White Blood Count 11.1 x10^3/uL (4.0-11.0) Red Blood Count 3.36 x10^6/uL (3.50-5.40) Hemoglobin 9.7 g/dL (12.0-15.5) Hematocrit 29.1 % (36.0-47.0) Mean Corpuscular Volume 87 fL (79-100) Mean Corpuscular Hemoglobin 29 pg (25-35) Mean Corpuscular Hemoglobin Concent 33 g/dL (31-37) Red Cell Distribution Width 13.4 % (11.5-14.5) Platelet Count 208 x10^3/uL (140-400) Test 12/27/19 16:35 12/27/19 19:54 12/28/19 05:20 12/28/19 06:31 Glucose (Fingerstick) 133 mg/dL (70-99) 133 mg/dL (70-99) 126 mg/dL (70-99) Hemoglobin 9.0 g/dL (12.0-15.5) Hematocrit 26.9 % (36.0-47.0) Mean Corpuscular Hemoglobin Concent 33 g/dL (31-37) Test 12/28/19 11:02 12/28/19 16:43 Glucose (Fingerstick) 106 mg/dL (70-99) 131 mg/dL (70-99) Laboratory Tests Test 12/27/19 19:54 12/28/19 05:20 12/28/19 06:31 12/28/19 11:02 Glucose (Fingerstick) 133 mg/dL (70-99) 126 mg/dL (70-99) 106 mg/dL (70-99) Hemoglobin 9.0 g/dL (12.0-15.5) Hematocrit 26.9 % (36.0-47.0) Mean Corpuscular Hemoglobin Concent 33 g/dL (31-37) Test 12/28/19 16:43 Glucose (Fingerstick) 131 mg/dL (70-99) Imaging Report reviewed and images independently reviewed. Satisfactory total knee arthroplasty without apparent complications. [facility] [address] [place], [place] [id number] IMAGING REPORT Signed PATIENT: JUVENTINO OLIVA ACCOUNT: [id number] : 1965 LOCATION: [address] [place] [address] AGE: 54 SEX: F EXAM STATUS: ADM IN ORD. PHYSICIAN: SHAI SAENZ MD REASON: POST OP PROCEDURE: KNEE LEFT 2V Left knee 2 views INDICATION: Postop COMPARISON: 11/23/2019 left knee x-rays FINDINGS: Interval left total knee arthroplasty. Good alignment. Surgical drain in the superior aspect of the right knee joint. Small amount of gas and fluid present in the anterior left knee soft tissues. IMPRESSION: Expected immediate postoperative appearance following interval left total knee arthroplasty. Electronically signed by: Fariha Dejesus MD (12/26/2019 10:14 AM) [id number] DICTATED and SIGNED BY: FARIHA DEJESUS MD DATE: 12/26/19 1014 Assessment Assessment POD#2 after TKA Plan Plan of Care Still having quite a bit of pain and she also has a lot of ecchymosis and I am concerned she is going to get blisters. I would like to watch this for another day and I will adjust her pain medicines and hopefully we can switch to all oral medicines by tomorrow Justicifation of Admission Dx: Justifications for Admission: Justification of Admission Dx: N/A SHAI SAENZ MD Dec 28, 2019 19:41
[2019-12-28] MEDS: traMADol 50 MG TABLET PO SCH (20:48)
[2019-12-28] MEDS: ACETAMINOPHEN 500 MG TABLET PO SCH (21:47)
[2019-12-28] MEDS: oxyCODONE IR 5 MG TABLET PO PRN (21:51)
[2019-12-28 23:00] VITALS: BP 146/81
[2019-12-29 03:00] VITALS: BP 140/83
[2019-12-29] MEDS: oxyCODONE IR 5 MG TABLET PO PRN ×4 (04:02→17:55)
[2019-12-29] MEDS: ACETAMINOPHEN 500 MG TABLET PO SCH ×2 (05:24→14:10)
[2019-12-29 06:36] VITALS: BP 145/81
[2019-12-29 07:07] LABS: HEMATOCRIT 27.6 % (36.0-47.0); HEMOGLOBIN 9.2 g/dL (12.0-15.5)
[2019-12-29] MEDS: INSULIN LISPRO 300 UNITS/3 ML VIAL. SQ SCH ×3 (07:51→16:58)
[2019-12-29] MEDS: methylPREDNISolone 4 MG TABLET. PO SCH (07:55)
[2019-12-29] MEDS: CELECOXIB 100 MG CAPSULE. PO SCH (07:56)
[2019-12-29] MEDS: POTASSIUM CHLORIDE 10 MEQ TABLET.ER. PO SCH (07:56)
[2019-12-29] MEDS: MULTIVITAMIN with MINERAL TABLET. PO SCH (07:56)
[2019-12-29] MEDS: LISINOPRIL 20 MG TABLET PO SCH (07:56)
[2019-12-29] MEDS: ASPIRIN ENTERIC COATED 325 MG TABLET.DR. PO SCH (07:56)
[2019-12-29] MEDS: metFORMIN 500 MG TABLET PO SCH ×2 (07:56→17:03)
[2019-12-29] MEDS: OXYBUTYNIN CHLORIDE 5 MG TABLET PO SCH ×2 (07:56→14:10)
[2019-12-29] MEDS: SENNOSIDES/DOCUSATE 8.6/50MG TABLET. PO SCH (07:56)
[2019-12-29] MEDS: traMADol 50 MG TABLET PO SCH ×2 (07:57→17:03)
[2019-12-29] MEDS: IV NORMAL SALINE 1000ML BAG 1,000 ML IV SCH (08:00)
--- NOTE | 2019-12-29 09:08 | PATHOLOGY ---
[facility] Accession Number: [id number] . 01 Material submitted: . knee - LEFT KNEE BONE AND TISSUE. Modifiers: left . 01 Clinical history: . OA LEFT KNEE . 02 Diagnosis: Segments of bone and soft tissue, left total knee arthroplasty: - Focally advanced degenerative arthritis. . (JPM:mm; 12/28/2019) [facility] 12/28/2019 1541 Local . 02 Electronically signed: . Enoch Melgar MD, Pathologist NPI- [id number] . 01 Gross description: . The specimen is received in formalin, labeled "Toya García, left knee bone and tissue". Received are multiple segments of bone, including the tibial plateau, measuring 9.8 x 8.9 x 2.6 cm in aggregate dimensions. Soft tissue and meniscus are present. The articular surfaces are smooth to granular in appearance with a slight amount of eburnation identified. The specimen is submitted representatively in cassette A1, following decalcification. ([facility]; 12/27/2019) QA/[facility] 12/27/2019 1026 Local . 02 Pathologist provided ICD-10: M17.12 . 02 CPT . 573046, 935438 Specimen Comment: A courtesy copy of this report has been sent to [phone], [phone] Specimen Comment: [id number] Specimen Comment: Report sent to / DR SAMS Performed at: 01 [facility] [address] [facility] [address], [place] [id number] MD Karan Jones MD Phone: [phone] Performed at: 02 [facility] [address] [place], [place] [id number] MD Enoch Melgar MD Phone: [phone]
--- NOTE | 2019-12-29 13:00 | NUR ---
Ambulating in hallways with daughter. Still complaining about pain on back of knee. Encourage to keep it elevated and iced. Will have Dr. Moreno look at it when rounding.
[2019-12-29 15:40] VITALS: BP 126/71
--- NOTE | 2019-12-29 16:10 | PDOC ---
PROGRESS NOTES Date of Service DATE: 12/29/19 TIME: 15:57 Subjective Subjective She still has quite a bit of pain and bruising. There is ecchymosis at the knee. She now has calf pain and calf tenderness. Objective Vital Signs Vital Signs Date Time Temp Pulse Resp B/P (MAP) Pulse Ox O2 Delivery O2 Flow Rate FiO2 12/29/19 15:40 98.1 82 16 126/71 (89) 96 Room Air 98.1 12/26/19 15:03 2.0 Physical Exam There is ecchymosis circumferentially at the knee but fortunately I do not see any blistering. The incision is relatively dry, normal spotty drainage only on the Wang dressing. There is some bloody drainage from the original Hemovac drain site. Her Hemovac never drained anything so she likely retained some of the normal postoperative hematoma, and now that is what we are seeing as the ecchymosis in the tissues. She does have calf tenderness however, and it difficult to tell whether this is only from the blood distributed in the soft tissues or whether there is actually a venous clot. I will obtain an ultrasound. She does have a positive Homans sign today. There is no evidence of compartment syndrome she has good active range of motion of the foot. She has been more mobile today than yesterday. Labs Laboratory Tests Test 12/27/19 16:35 12/27/19 19:54 12/28/19 05:20 12/28/19 06:31 Glucose (Fingerstick) 133 mg/dL (70-99) 133 mg/dL (70-99) 126 mg/dL (70-99) Hemoglobin 9.0 g/dL (12.0-15.5) Hematocrit 26.9 % (36.0-47.0) Mean Corpuscular Hemoglobin Concent 33 g/dL (31-37) Test 12/28/19 11:02 12/28/19 16:43 12/28/19 20:04 12/29/19 06:20 Glucose (Fingerstick) 106 mg/dL (70-99) 131 mg/dL (70-99) 135 mg/dL (70-99) Hemoglobin 9.2 g/dL (12.0-15.5) Hematocrit 27.6 % (36.0-47.0) Mean Corpuscular Hemoglobin Concent 33 g/dL (31-37) Test 12/29/19 06:56 12/29/19 11:08 Glucose (Fingerstick) 109 mg/dL (70-99) 111 mg/dL (70-99) Laboratory Tests Test 12/28/19 16:43 12/28/19 20:04 12/29/19 06:20 12/29/19 06:56 Glucose (Fingerstick) 131 mg/dL (70-99) 135 mg/dL (70-99) 109 mg/dL (70-99) Hemoglobin 9.2 g/dL (12.0-15.5) Hematocrit 27.6 % (36.0-47.0) Mean Corpuscular Hemoglobin Concent 33 g/dL (31-37) Test 12/29/19 11:08 Glucose (Fingerstick) 111 mg/dL (70-99) Assessment Assessment POD# 3 after TKA. Postoperative ecchymosis. Calf pain. Plan Plan of Care I will obtain a stat venous Doppler of that left lower extremity, prior to discharge. If the clot is present I would switch from aspirin for DVT prophylaxis to Xarelto starting pack for clot treatment. If there is no clot then we can do the discharge on aspirin only. I still think she can go home today. Her daughter was present and after all of this was explained she is in agreement. Justicifation of Admission Dx: Justifications for Admission: Justification of Admission Dx: N/A SHAI SAENZ MD Dec 29, 2019 16:10
--- NOTE | 2019-12-29 17:48 | RAD ---
EXAM: Left lower extremity venous Doppler. HISTORY: Left lower extremity pain/swelling. Positive Homans sign. COMPARISON: None. FINDINGS: Grayscale and Doppler analysis of the left lower extremity deep venous system was performed with graded compression and augmentation. The common femoral, greater saphenous, superficial femoral, popliteal and calf veins were assessed. There is no evidence of deep venous thrombosis. IMPRESSION: 1. No evidence of deep venous thrombosis. Electronically signed by: William Cummings MD (12/29/2019 5:45 PM) [facility]
--- NOTE | 2019-12-29 18:17 | NUR ---
Requested pain med after ultra sound of left leg. Stated it was painful. Noted dressing at the old drain site saturated. Dressing changed.
--- NOTE | 2019-12-29 18:21 | NUR ---
Ultra sound negative for DVT. Notified Dr. Moreno and gave orders to discharge.
--- NOTE | 2019-12-29 19:05 | NUR ---
Discharge instructions given. Prescriptions sent via electronic to pharmacy. Answered questions and concerns. Verbalized understanding. Pt discharge home with outpatient therapy. Escorted out by w/c and accompanied by daughter and staff.
== END 2019-12-29 19:05 | disposition home or self-care (01) | DRG 470 ==
LOC: SURG 06:05 → 4 SOUTHEST 09:40 → OBSVTOIN 15:49
PROVIDERS: ADMIT Orthopaedic Surgery; ATTEND Orthopaedic Surgery
PROC: 3E0U33Z Introduction of Anti-inflammatory into Joints, Percutaneous Approach (ICD-10-PCS; 2019-12-26)
PROC: 8E0Y4CZ Robotic Assisted Procedure of Lower Extremity, Percutaneous Endoscopic Approach (ICD-10-PCS; 2019-12-26)
PROC: 0SRD0J9 Replacement of Left Knee Joint with Synthetic Substitute, Cemented, Open Approach (ICD-10-PCS; principal; 2019-12-26 07:10)
DX: M17.12 Unilateral primary osteoarthritis, left knee (principal); F32.9 Major depressive disorder, single episode, unspecified; Z90.49 Acquired absence of other specified parts of digestive tract; Z90.710 Acquired absence of both cervix and uterus; Z83.3 Family history of diabetes mellitus; M19.071 Primary osteoarthritis, right ankle and foot; M19.072 Primary osteoarthritis, left ankle and foot; I10 Essential (primary) hypertension
CPT/HCPCS: 36415; 73560; 82962; 85014; 85018; 85027; 86850; 86900; 86901; 93971; A7015; C1713; G0378; G0379; J0171; J0690; J0780; J1030; J1040; J1100; J1170; J1815; J1885; J2250; J2270; J2370; J2405; J2704; J2710; J2795; J3010; J3260; J3370; J3490; J7030; J7120; J7509; 97110-GP; 97116-GP; 97150-GP; 97530-GP; 97535-GO; A4461; C1769

== ENCOUNTER → 2020-01-16 | Outpatient (CLI) | payer BC ==
[2019-12-28 08:20] VITALS: BP 132/84
[~2020-01-16] MED LIST changes: -ACETAMINOPHEN 500 MG TABLET PO PRN; -CELECOXIB 100 MG CAPSULE. PO PRN; -MORPHINE SULFATE 5 MG, KETOROLAC 30MG VIAL 30 MG, ROPIVacaine 0.5% PF 60 ML, EPINEPHrin... INT ART ONE; -TRANEXAMIC ACID 1,000 MG in IV NS 50ML -- 1ST BAG INJ ONE
[2020-01-16 08:33] LABS: BASO % 1 % (0-3); EOS # 0.1 x10^3/uL (0.0-0.7); EOS % 2 % (0-3); HEMATOCRIT 34.1 % (36.0-47.0); HEMOGLOBIN 11.3 g/dL (12.0-15.5); LYMPH % 37 % (24-48); MEAN CORPUSCULAR HEMOGLOBIN 29 pg (25-35); MEAN CORPUSCULAR HGB CONC 33 g/dL (31-37); MEAN CORPUSCULAR VOLUME 86 fL (79-100); MONO # 0.4 x10^3/uL (0.0-1.1); MONO % 8 % (0-9); NEUT # 2.7 x10^3/uL (1.8-7.7); NEUT % 52 % (31-73); PLATELET COUNT 359 x10^3/uL (140-400); RED BLOOD COUNT 3.96 x10^6/uL (3.50-5.40); RED CELL DISTRIBUTION WIDTH 14.3 % (11.5-14.5); WHITE BLOOD COUNT 5.3 x10^3/uL (4.0-11.0)
== END ==
LOC: LAB 07:52
PROVIDERS: ATTEND Physician Assistant
DX: Z47.1 Aftercare following joint replacement surgery (principal)
CPT/HCPCS: 36415; 85025; 85379; 86141

== ENCOUNTER → 2021-07-16 | Outpatient (CLI) | payer BC ==
[2019-12-28 08:20] VITALS: BP 132/84
[~2021-07-16] MED LIST changes: -LISI-334 PO; +LISI20TA18 PO
--- NOTE | 2021-07-16 16:23 | KCIC ---
EXAMINATION: XR CHEST 2V CLINICAL HISTORY: Shortness of breath x1 month with recent bronchitis. EXAM DATE/TIME: 07/16/2021 2:33 PM COMPARISON: 12/05/2019 FINDINGS: Lines, Tubes, and Devices: None. Cardiomediastinal Silhouette: Normal heart size. Lungs and Pleura: No evidence of focal airspace consolidation or pleural effusion. Pulmonary vasculat ure unremarkable. Bones and Soft Tissues: Degenerative changes in the thoracic spine. Cholecystectomy clips. IMPRESSION: No evidence of acute cardiopulmonary abnormality or significant interval change. Electronically signed by: Chris Titus DO (07/16/2021 4:21 PM) [id number]
== END ==
LOC: KCIC 14:19
PROVIDERS: ATTEND Family Medicine
DX: R06.02 Shortness of breath (principal); J40 Bronchitis, not specified as acute or chronic; M47.814 Spondylosis without myelopathy or radiculopathy, thoracic region; Z90.49 Acquired absence of other specified parts of digestive tract
CPT/HCPCS: 71046

== ENCOUNTER → 2021-08-06 | Outpatient (CLI) | payer BC ==
[2019-12-28 08:20] VITALS: BP 132/84
--- NOTE | 2021-08-07 08:58 | RAD ---
EXAM: CT ABDOMEN/PELVIS WITHOUT CONTRAST. HISTORY: Pyelonephritis. TECHNIQUE: Computed tomography of the abdomen and pelvis was performed without intravenous contrast. One or more of the following individualized dose reduction techniques were utilized for this examinat ion: 1. Automated exposure control. 2. Adjustment of the mA and/or kV according to patient size. 3. Use of iterative reconstruction technique. COMPARISON: None. FINDINGS: Lung windows through the visualized portions of the bases reveal mild atelectasis. Bone win dows reveal no suspicious lesions. There is grade 1 anterolisthesis at L4-5. There is at least modera te central canal stenosis at this level. Hypoattenuation of the hepatic parenchyma indicates moderate to severe diffuse hepatic steatosis. The gallbladder is surgically absent. The pancreas, adrenal glands, and spleen are unremarkable without contrast. The kidneys are unremarkable without contrast. There is no hydronephrosis. There are no renal or uret eral calculi. The uterus is surgically absent. There is no evidence of appendicitis. There is no small bowel obstru ction. IMPRESSION: 1. Unremarkable examination of the kidneys without contrast. 2. Moderate to severe diffuse hepatic steatosis. Electronically signed by: William Cmumings MD (08/07/2021 8:56 AM) [id number]
--- NOTE | 2021-08-07 13:23 | CARD ---
MR#: [id number] Date of Study: 08/06/2021 Ordering Physician: Levi MUSTAFA, Referring Physician: Kay AVILA: [facility] APPROVED REPORT EXAM: Two-dimensional and M-mode echocardiogram with Doppler and color Doppler. Other Information Quality : FairHR: 72bpm Rhythm : NSR INDICATION Dyspnea RISK FACTORS Obesity 2D DIMENSIONS Left Atrium(2D)4.0 (1.6-4.0cm)IVSd0.9 (0.7-1.1cm) Aortic Root(2D)3.0 (2.0-3.7cm)LVDd5.2 (3.9-5.9cm) LVOT Diameter1.9 (1.8-2.4cm)PWd0.9 (0.7-1.1cm) LA Xfubra16 (18-58mL)LVDs3.1 (2.5-4.0cm) FS (%) 41.8 %SV95.6 ml LVEF(%)72.3 (>50%) Aortic Valve AoV Peak Solomon.147.9cm/sAoV VTI28.5cm AO Peak GR.8.7mmHgLVOT Peak Solomon.97.5cm/s LVOT VTI 19.60cmAO Mean GR.4mmHg PEDRO (VMAX)1.60dz0VTZ (VTI)1.95cm2 Mitral Valve MV E Qjcdknla80.1cm/sMV DECEL [id number] MV A Zywuirca55.6cm/sMV [id number] E/A Ratio1.0MVA (PHT)3.41cm2 TDI E/Lateral E'8.3E/Medial E'11.1 Pulmonary Valve PV Peak Iqsbmxuv979.1cm/sPV Peak Grad.4mmHg Tricuspid Valve TR P. Axcqxenj037sn/sTR Peak Gr.27mmHg Pulmonary Vein S1 Wknlrccn82.0cm/sD2 Zdckglmo50.7cm/s LEFT VENTRICLE The left ventricle is normal size. There is normal left ventricular wall thickness. The left ventricu lar systolic function is normal. The Ejection Fraction is 60-65%. There is normal LV segmental wall m otion. No left ventricle thrombus noted on this study. There is no ventricular septal defect visualiz ed. There is no left ventricular aneurysm. There is no mass noted in the left ventricle. RIGHT VENTRICLE The right ventricle is normal size. There is normal right ventricular wall thickness. The right ventr icular systolic function is normal. ATRIA The left atrium is borderline dilated. The right atrium size is normal. The interatrial septum is int act with no evidence for an atrial septal defect or patent foramen ovale as noted on 2-D or Doppler i maging. AORTIC VALVE The aortic valve is normal in structure and function. The aortic valve is trileaflet. Doppler and Col or Flow revealed no significant aortic regurgitation. There is no significant aortic valvular stenosi s. There is no aortic valvular vegetation. MITRAL VALVE The mitral valve is normal in structure and function. There is no evidence of mitral valve prolapse. There is no mitral valve stenosis. Doppler and Color Flow revealed no mitral valve regurgitation note d. TRICUSPID VALVE The tricuspid valve is normal in structure and function. Doppler and Color Flow revealed trace tricus pid regurgitation. The PA pressure was estimated at 35-40 mmHg. There is no tricuspid valve prolapse or vegetation. There is no tricuspid valve stenosis. PULMONIC VALVE The pulmonary valve is normal in structure and function. Doppler and Color Flow revealed no pulmonic valvular regurgitation. There is no pulmonic valvular stenosis. GREAT VESSELS The aortic root is normal in size. The ascending aorta is normal in size. The pulmonary artery is nor mal. The IVC is normal in size and collapses >50% with inspiration. PERICARDIAL EFFUSION There is no pleural effusion. There is no evidence of significant pericardial effusion. Critical Notification Critical Value: No <Conclusion> The left ventricular systolic function is normal. The Ejection Fraction is 60-65%. There is normal LV segmental wall motion. Trace tricuspid regurgitation. The PA pressure was estimated at 35-40 mmHg. There is no evidence of significant pericardial effusion. Signed by : Randell Randolph, Electronically Approved : 08/07/2021 13:23:17
== END ==
LOC: ECHO 14:34
PROVIDERS: ATTEND Family Medicine
DX: K76.0 Fatty (change of) liver, not elsewhere classified (principal); R06.02 Shortness of breath; R63.5 Abnormal weight gain; J98.11 Atelectasis
CPT/HCPCS: 74176; 93306; C8929